=== PATIENT | male | born 1940 | race Caucasian/White ===

== ENCOUNTER 2019-11-16 15:00 | Inpatient (IN) | payer MEDICARE ==
[~2019-11-16] VITALS: Ht 193 cm; Wt 88.4 kg
[2019-11-16] MEDS ORDERED: DABI75CA3 PO (15:43)
[2019-11-16] MEDS ORDERED: PANT40TA6 PO (15:43)
[2019-11-16] MEDS ORDERED: POTA10TA12 PO (15:43)
[2019-11-16] MEDS ORDERED: LEVO75TA5 PO (15:43)
[2019-11-16] MEDS ORDERED: QUET100T PO (15:43)
[2019-11-16] MEDS ORDERED: [UNRECOGNIZED DRUG - OTHER] PO (15:43)
[2019-11-16] MEDS ORDERED: POLY17PO5 PO (15:43)
[2019-11-16] MEDS ORDERED: MIDO5TAB4 PO (15:43)
[2019-11-16] MEDS ORDERED: TEMA15CA PO (15:43)
[2019-11-16] MEDS ORDERED: [UNRECOGNIZED DRUG - OTHER] PO (15:43)
[2019-11-16] MEDS ORDERED: DONE10TA7 PO (15:43)
[2019-11-16] MEDS ORDERED: QUET50TA PO (15:43)
[2019-11-16] MEDS ORDERED: DIGO125T17 PO (15:43)
[2019-11-16] MEDS ORDERED: LORA-254 PO ×2 (15:43)
[2019-11-16] MEDS ORDERED: DOCU-109 PO (15:43)
[2019-11-16] MEDS ORDERED: IBUP200T58 PO (15:43)
[2019-11-16] MEDS ORDERED: ACET500T68 PO (15:43)
[2019-11-16] MEDS ORDERED: MAGN400O7 PO (15:43)
[2019-11-16 15:49] VITALS: BP 130/78
--- NOTE | 2019-11-16 16:04 | NUR ---
NURSING NOTE ADMIT PT ADMIT TO ROOM 131 AT 1510 FOR DX OF PUI TO BE ADMIT TO [facility]. PT WHEELED TO ROOM. PT A&O TO SELF ONLY. PT MEDS ENTERED INTO CHART. THIS NURSE DID NOT RECEIVE REPORT FROM FACILITY. PHONED FACILITY TO FIND OUT ABOUT FLU SHOT AND ACTIVITY LEVEL. PT HAS NOT RECEIVED FLU SHOT. PT USES WHEELCHAIR MOSTLY BUT WILL GET UP IF UNATTENDED AND IS A FALL RISK. PT BELONGINGS LABELED AND PT CURRENTLY IN BED RESTING. JEN NAVAS.
[2019-11-16] MEDS ORDERED: MAGNESIUM HYDROXIDE 2,400 MG/30 ML ORAL.SUSP. PO PRN ×2 (19:00→22:00)
[2019-11-16] MEDS ORDERED: MAG HYDROX/AL HYDROX/SIMETH 30 ML ORAL.SUSP PO PRN (19:15)
[2019-11-16] MEDS ORDERED: BISMUTH SUBSALICYLATE 262 MG/15 ML ORAL.SUSP 236ML BOTTLE. PO PRN (19:15)
[2019-11-16] MEDS: QUEtiapine 50 MG TABLET. PO SCH (19:50)
[2019-11-16] MEDS: IBUPROFEN 200 MG TABLET PO SCH (19:50)
[2019-11-16] MEDS: ACETAMINOPHEN 500 MG TABLET PO SCH (19:50)
[2019-11-16] MEDS: TEMAZEPAM 15 MG CAPSULE PO SCH (19:50)
[2019-11-16] MEDS: DOCUSATE SODIUM 100 MG CAPSULE PO SCH (19:51)
[2019-11-16] MEDS: LORazepam 1 MG TABLET PO SCH (19:51)
[2019-11-16] MEDS: LORazepam 1 MG TABLET PO PRN (19:52)
[2019-11-16 21:12] VITALS: BP 180/117
--- NOTE | 2019-11-16 22:07 | PDOC ---
Exam Note: Evelio Note: Please also refer to the separate dictated note~for this date of service dictated separately.~Patient seen individually. Discussed the patient with Nursing staff reviewed the chart.~Reviewed interim history and current functioning. Reviewed vital signs,~Labs/ Radiology~and current medications noted below. Continue current treatment with the changes noted in the dictated addendum note Assessment: Vital Signs/I&O: Vital Signs Date Time Temp Pulse Resp B/P (MAP) Pulse Ox O2 Delivery O2 Flow Rate FiO2 11/16/19 21:12 77 180/117 (138) 99 11/16/19 16:32 Room Air 11/16/19 15:49 97.6 20 Current Medications: Meds: Current Medications Medications (Trade) Dose Ordered Sig/Harvey Route PRN Reason Start Time Stop Time Status Last Admin Dose Admin Acetaminophen (Tylenol) 1,000 mg BID PO 11/16/19 21:00 11/16/19 19:50 Docusate Sodium (Colace) 100 mg BID PO 11/16/19 21:00 11/16/19 19:51 Ibuprofen (Motrin) 200 mg Q12HR PO 11/16/19 21:00 11/16/19 19:50 Lorazepam (Ativan) 0.5 mg PRN Q4HRS PRN PO ANXIETY / AGITATION 11/16/19 19:00 11/16/19 19:52 Quetiapine Fumarate (SEROquel) 50 mg HS PO 11/16/19 21:00 11/16/19 19:50 Temazepam (Restoril) 15 mg QHS PO 11/16/19 21:00 11/16/19 19:50 Olanzapine (ZyPREXA ZYDIS) 2.5 mg PRN Q2HR PRN PO PSYCHOSIS 11/16/19 21:00 11/16/19 21:06 I have reviewed the current psychotropics carefully including drug interactions. Risk benefit ratio favors no change other than as noted in my dictated progress note. JOSE WILSON MD Nov 16, 2019 22:06
--- NOTE | 2019-11-16 23:56 | NUR ---
Pt has been extremely disorganized and restless this shift. Pt wandering unit and unable to follow direction. 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 Staff at pt's side 1:1 all evening. Pt has extremely unsteady gait and has visual hallucinations and attempts to bend down and pick items up off of the floor. Staff attempted to walk with pt, toilet pt, turn music on caitlyn. Interventions unsuccessful. PRN Ativan administered with HS medications. Pt compliant with crushed medications in chocolate pudding. Pt continued to be restless and wander over to nurse's station. Pt had witnessed fall at approximately 0. Pt fell backwards and hit back of head on chair. VS taken. Nursing classified advertising supervisor on unit. notified. Pt became increasingly agitated and attempted to hit staff. Dr. Farooq teague. Received order for Zyprexa Zydis 2.5mg. PRN Zyprexa administered sublingually at 2100. Pt placed in bed d/t unsteadiness where he proceeded to repeatedly try to get up. Staff at bedside for safety. Pt sleeping intermittently. At approximately 2350, pt began attempting to get out of bed. PRN Zyprexa administered sublingually. Pt currently awake in bed with bed alarm on. Will continue to monitor.
[2019-11-17 02:25] LABS: BACTERIA,URINE 0 /HPF (0-FEW); BILIRUBIN,URINE NEG (NEG); CLARITY,URINE CLEAR; COLOR,URINE YELLOW; GLUCOSE,URINE NEG (NEG); NITRITE,URINE NEG (NEG); RBC,URINE 0 /HPF (0-2); SQUAMOUS EPITHELIAL CELL,UR OCC /LPF; UROBILINOGEN,URINE 0.2 mg/dL (0.2 mg/dL); WBC,URINE RARE /HPF (0-4)
[2019-11-17] MEDS: LORazepam 1 MG TABLET PO PRN (06:04)
[2019-11-17] MEDS: LEVOTHYROXINE 75 MCG TABLET PO SCH (06:04)
[2019-11-17 06:35] VITALS: BP 208/116
[2019-11-17] MEDS ORDERED: amLODIPine BESYLATE 10 MG TABLET PO SCH (07:00)
[2019-11-17 07:03] VITALS: BP 207/104
[2019-11-17] MEDS: MIDODRINE 5 MG TABLET PO SCH ×2 (07:21→11:31)
[2019-11-17] MEDS ORDERED: amLODIPine BESYLATE 10 MG TABLET PO ONE (07:45)
[2019-11-17 07:59] LABS: BASO % 0 % (0-3); EOS # 0.3 x10^3/uL (0.0-0.7); EOS % 4 % (0-3); HEMATOCRIT 43.8 % (39.0-53.0); HEMOGLOBIN 14.6 g/dL (13.0-17.5); LYMPH # 2.3 x10^3/uL (1.0-4.8); LYMPH % 30 % (24-48); MEAN CORPUSCULAR HEMOGLOBIN 32 pg (25-35); MEAN CORPUSCULAR HGB CONC 33 g/dL (31-37); MEAN CORPUSCULAR VOLUME 95 fL (79-100); MONO # 0.7 x10^3/uL (0.0-1.1); MONO % 10 % (0-9); NEUT # 4.3 x10^3uL (1.8-7.7); NEUT % 56 % (31-73); PLATELET COUNT 125 x10^3/uL (140-400); RED CELL DISTRIBUTION WIDTH 15.4 % (11.5-14.5); WHITE BLOOD COUNT 7.7 x10^3/uL (4.0-11.0)
[2019-11-17 08:26] LABS: ALBUMIN 3.8 g/dL (3.4-5.0); ALBUMIN/GLOBULIN RATIO 1.1 (1.0-1.7); CALCIUM 9.1 mg/dL (8.5-10.1); GFR 72.3; POTASSIUM 3.8 mmol/L (3.5-5.1); TOTAL BILIRUBIN 0.5 mg/dL (0.2-1.0); TOTAL PROTEIN 7.3 g/dL (6.4-8.2)
[2019-11-17 08:28] LABS: DIG 0.6 ng/dL (0.9-2.0); MAGNESIUM 2.3 mg/dL (1.8-2.4)
[2019-11-17] MEDS: ACETAMINOPHEN 500 MG TABLET PO SCH ×2 (08:39→20:01)
[2019-11-17] MEDS: DIGOXIN 125 MCG TABLET PO SCH (08:39)
[2019-11-17] MEDS: DOCUSATE SODIUM 100 MG CAPSULE PO SCH ×2 (08:39→20:01)
[2019-11-17] MEDS: DONEPEZIL HCL 10 MG TABLET PO SCH (08:39)
[2019-11-17] MEDS: POLYETHYLENE GLYCOL 3350 17 GM PACKET. PO SCH (08:39)
[2019-11-17] MEDS: POTASSIUM CHLORIDE 10 MEQ TABLET.ER. PO SCH (08:39)
[2019-11-17] MEDS: LORazepam 1 MG TABLET PO SCH (08:40)
[2019-11-17] MEDS: IBUPROFEN 200 MG TABLET PO SCH ×2 (08:40→20:04)
[2019-11-17] MEDS: PANTOPRAZOLE 40 MG TABLET. PO SCH (08:40)
[2019-11-17 08:47] LABS: BACTERIA,URINE 0 /HPF (0-FEW); BILIRUBIN,URINE NEG (NEG); CLARITY,URINE CLEAR; COLOR,URINE YELLOW; GLUCOSE,URINE NEG (NEG); NITRITE,URINE NEG (NEG); RBC,URINE 0 /HPF (0-2); SQUAMOUS EPITHELIAL CELL,UR FEW /LPF; UROBILINOGEN,URINE 0.2 mg/dL (0.2 mg/dL); WBC,URINE OCC /HPF (0-4)
[2019-11-17] MEDS ORDERED: QUEtiapine 100 MG TABLET. PO SCH (09:00)
[2019-11-17] MEDS ORDERED: DABIGATRAN ETEXILATE 75 MG CAPSULE. PO SCH (09:00)
[2019-11-17] MEDS ORDERED: FLU VACC QS 2020-21(6MOS+)/PF 0.5 ML SYRINGE. VAX IM ONE (09:00)
--- NOTE | 2019-11-17 10:22 | NUR ---
Patient calm and cooperative this morning until 0800. Patient allowed labs to be drawn. After 0800 patient began to become more irritable; attempting to slap, kick and spit on staff. Patient refused medication and attempted to hit staff while medications were being given. Patient had medication floated in pudding. public relations supervisor notified of patient possibly needing to be a 1:1 due to behavior and fall risk.Tech sitting in door way of patients room.
[2019-11-17 11:00] VITALS: BP 188/90
[2019-11-17] MEDS: QUEtiapine 100 MG TABLET. PO SCH (11:58)
[2019-11-17 13:00] VITALS: BP 144/70
--- NOTE | 2019-11-17 13:15 | CONS ---
DATE OF CONSULTATION: 11/16/2019 PSYCHIATRIC CONSULTATION This late entry date of service 11/16/2019 covers elements not covered in my initial note 11/16/2019. IDENTIFYING DATA: The patient is a 79-year-old male referred to us from [facility] by his primary care physician on account of worsening confusion, attempting to kick a GRAVE DIGGER at the facility, restless with increased agitation, visual hallucinations, seeing cars, animals and people. He has been picking up objects off the floor that are not there. He chased a GRAVE DIGGER when he thought he was being robbed. He wanders. 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 The patient's behaviors have been dangerous, unmanageable at the facility, having failed outpatient psychiatric interventions, he is referred for inpatient psychiatric stabilization. He has been admitted on the [facility] unit before going to the [facility], so that COVID negative status can be confirmed before transition. CHIEF COMPLAINT: "No." HISTORY OF PRESENT ILLNESS: The patient has a long history of dementia, Alzheimer's vascular type. He also has a past history of alcohol abuse with questionable blackouts, but will have to be confirmed as the hospitalization progresses. He has a diagnosis additionally of Lewy body dementia and has been increasingly psychotic, agitated with sleep and appetite changes, disruptive, dangerous, unmanageable behaviors noted above. PAST PSYCHIATRIC HISTORY: As above. MEDICAL HISTORY: Positive for hypertension, atrial fibrillation, pacemaker in place, hyperlipidemia, GERD, hypothyroidism, sick sinus syndrome, anemia, hemorrhoids. ACCU-CHEKS: Negative. CODE STATUS: DNR. ALLERGIES: NEOSPORIN. DIET: Regular. Takes medications crushed, ambulates in wheelchair at the facility, unsteady. UA awaited. CURRENT PSYCHOTROPICS: Ativan 1 mg daily, 0.5 mg q. 4 hours p.r.n.; Aricept 10 mg a day; Seroquel 100 mg daily, 50 mg at bedtime; temazepam 15 mg at bedtime. FAMILY HISTORY: Noncontributory. SOCIAL HISTORY: Positive for alcohol abuse noted above, but will have to be confirmed. No physical, sexual or elder abuse history is noted. He is not known to be a perpetrator. REVIEW OF SYSTEMS: Ambulation impaired. No CV, , pulmonary, eye, ENT system symptoms on review. MENTAL STATUS EXAMINATION: The patient was seen individually. He is oriented to himself. Insight, judgment, recent and remote memory, attention, concentration, fund of knowledge poor, consistent with his diagnosis. He is quite restless, anxious, grabbing at things. LABORATORY DATA: Reviewed. IMPRESSION: Major neurocognitive disorder, possibly Lewy body, Alzheimer, vascular with delusion, depression, behavioral disturbance; anxiety disorder, unspecified; impulse control disorder, unspecified; rule out urinary tract infection. Rest as above. RECOMMENDATIONS: From a psychiatric standpoint, continue his current psychotropics. We will consider tapering and stopping the Ativan since this could be causing paradoxical disinhibition. Consider changing Restoril to Remeron, adjusting the Seroquel to have some daytime mood stabilization effect and add Zyprexa p.r.n. I was called by JEN Colvin around 10:00 p.m. on account of the patient's marked agitation, disruptive behaviors and we did add Zyprexa 2.5 mg q. 2 hours p.r.n. psychosis, agitation, max 15 mg a day. May also consider Depakote as a mood stabilizer. We will transition to [facility] once COVID status negative. MAN Cristóbal WILSON MD DR: YESSY/pascale JOB#: [id number] / [id number]
[2019-11-17 13:29] LABS: THYROID STIM HORMONE (TSH) 4.864 uIU/mL (0.358-3.740)
[2019-11-17] MEDS: QUEtiapine 25 MG TABLET. PO SCH (14:46)
[2019-11-17 18:49] VITALS: BP 165/90
--- NOTE | 2019-11-17 19:08 | HP ---
ADMIT DATE: 11/16/2019 HISTORY OF PRESENT ILLNESS: The patient is a 79-year-old male patient, a resident at [facility] in cooperation who was admitted to [facility] for 48 hours hold to make sure that he is COVID-19 negative and the admission was on account of him attempting to kick a SCENERY BUILDER, being restless with increased agitation, visual hallucination. He sees cars, animals, pupils and picks up objects off the floor that are not there. 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 PAST MEDICAL HISTORY: Significant for hypertension, atrial fibrillation, hyperlipidemia, obstructive sleep apnea, gastroesophageal reflux disease, hypothyroidism, sick sinus syndrome, anemia, anxiety, insomnia, and hemorrhoids. PAST SURGICAL HISTORY: Significant for permanent pacemaker placement. ALLERGIES: HE IS ALLERGIC TO NEOSPORIN. MEDICATIONS: He is currently on following medications: He is on lorazepam 0.5 mg once a day, quetiapine fumarate 25 mg at 1500 hours, Seroquel 50 mg twice a day, potassium chloride 10 mEq once a day, polyethylene glycol 17 grams daily, Protonix 40 mg daily, Aricept 10 mg once a day, digoxin 125 mcg once a day, Pradaxa 75 mg daily, midodrine 5 mg 3 times a day with meals, levothyroxine 75 mcg daily, milk of magnesia 30 mL p.o. daily p.r.n. for constipation, olanzapine 2.5 mg every 2 hours, temazepam 50 mg at bedtime, Seroquel 50 mg at bedtime, ibuprofen 200 mg q.12 hourly, Colace 100 mg twice a day, acetaminophen 1000 mg twice a day, Bismuth subsalicylate 524 mg 3 times a day for diarrhea, Mylanta 30 mL every 6 hours as needed, and lorazepam 0.5 mg every 4 hours as needed. FAMILY HISTORY: Unobtainable. SOCIAL HISTORY: He is apparently a resident at [facility]. No further information available. PHYSICAL EXAMINATION: GENERAL: When I examined him, he was resting slightly propped up in bed, in no apparent distress. There was no pallor, jaundice, cyanosis or thyromegaly. No jugular venous distention. No limb edema. VITAL SIGNS: Her heart rate was 67, blood pressure was extremely high this morning at 207/104. It came down to 144/70 after he received amlodipine. His temperature was 97.3 and his oxygen saturation was 98% on room air. HEAD, EYES, EARS, NOSE AND THROAT: Showed normocephalic, atraumatic. NECK: Supple. CARDIAC: Normal first and second heart sounds. No gallop, rub or murmur. CHEST: Clear to auscultation. No crepitation or rhonchi. ABDOMEN: Slightly distended, soft, nontender. NEUROLOGIC: He is demented, but without any obvious lateralizing sign. All his cranial nerves are intact. He moves extremities without difficulty. Apparently, he is able to stand up, but he has recurrent falls. LABORATORY DATA: Her lab work on admission showed a white cell count of 7700, hemoglobin 14.6, hematocrit 44, MCV 95, and platelet count of 155,000. His D-dimer was 0.21. His chemistry showed a serum sodium 141, potassium 3.8, chloride 107, bicarbonate was 27, anion gap of 7, BUN 19, creatinine 1, estimated GFR was 72 mL per minute, his glucose was 91, calcium was 9.1, magnesium was 2.3. Serum iron, TIBC and iron saturation are all high. Total bilirubin, AST, ALT, alkaline phosphatase were normal. Total protein 7.3, albumin was 3.8. His serum triglycerides were 150, total cholesterol 160, LDL was 87, VLDL was 30, HDL was 43 and the ratio was 3. His TSH was slightly high at 4.864. His urinalysis is essentially unremarkable and his toxic screen showed digoxin. Serum digoxin level was 0.6, which is subtherapeutic. ASSESSMENT AND PLAN: In summary, this is a 79-year-old male patient who was admitted on account of attempting to kick a SCENERY BUILDER. He was restless with increased agitation, has visual hallucination. He sees cars, animals and people. He picks up objects off floor that are not there. 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 Medically, the patient is known to have hypertension, atrial fibrillation, hyperlipidemia, has also sick sinus syndrome, for which he had permanent pacemaker placed. He has also hypothyroidism, gastroesophageal reflux disease. His past surgical history is significant for permanent pacemaker placement. Medically, the patient seems to be generally stable. His vitamin D is still pending at the time of this dictation. He is on midodrine, which indicates that he probably has some form of autonomic neuropathy, which makes him probably high risk for fall. I wonder whether it is a good idea to continue with his Pradaxa and we might have to discuss with the family the need to discontinue this altogether given he is a very high risk for fall. He has also seemed to have probably supine hypertension that is aggravated by midodrine and postural __ with tendency to fall. Thank you, Dr. Trivedi for allowing me to participate in the care of this patient. VICKY AMAYA MD DR: JASMINA/pascale JOB#: [id number] / [id number]
--- NOTE | 2019-11-17 19:09 | EKG ---
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
[2019-11-17] MEDS: QUEtiapine 50 MG TABLET. PO SCH (20:01)
[2019-11-17] MEDS: DABIGATRAN ETEXILATE 75 MG CAPSULE. PO SCH (20:02)
[2019-11-17] MEDS: TEMAZEPAM 15 MG CAPSULE PO SCH (20:04)
--- NOTE | 2019-11-17 21:53 | NUR ---
Pt laying in bed all evening, restless at times but improved from last night. Compliant with crushed medications. Pt has moist, unproductive cough this evening. HOB elevated and bed alarm on. Will continue to monitor.
--- NOTE | 2019-11-17 22:13 | PDOC ---
Exam Note: Evelio Note: Please also refer to the separate dictated note~for this date of service dictated separately.~Patient seen individually. Discussed the patient with Nursing staff reviewed the chart.~Reviewed interim history and current functioning. Reviewed vital signs,~Labs/ Radiology~and current medications noted below. Continue current treatment with the changes noted in the dictated addendum note Assessment: Vital Signs/I&O: Vital Signs Date Time Temp Pulse Resp B/P (MAP) Pulse Ox O2 Delivery O2 Flow Rate FiO2 11/17/19 20:00 Room Air 11/17/19 18:49 98.0 96 16 165/90 (115) 96 I & O 11/16/19 11/16/19 11/17/19 15:00 23:00 07:00 Intake Total 50 ml 0 ml Balance 50 ml 0 ml Labs: Laboratory Tests Test 11/17/19 01:55 11/17/19 07:28 11/17/19 07:35 Urine Collection Type Unknown Unknown Urine Color Yellow Yellow Urine Clarity Clear Clear Urine pH 6.0 7.0 Urine Specific [place] 1.020 1.025 Urine Protein Neg (NEG-TRACE) Neg (NEG-TRACE) Urine Glucose (UA) Neg mg/dL (NEG) Neg mg/dL (NEG) Urine Ketones (Stick) Trace mg/dL (NEG) Neg mg/dL (NEG) Urine Blood Neg (NEG) Neg (NEG) Urine Nitrite Neg (NEG) Neg (NEG) Urine Bilirubin Neg (NEG) Neg (NEG) Urine Urobilinogen Dipstick 0.2 mg/dL (0.2 mg/dL) 0.2 mg/dL (0.2 mg/dL) Urine Leukocyte Esterase Neg (NEG) Neg (NEG) Urine RBC 0 /HPF (0-2) 0 /HPF (0-2) Urine WBC Rare /HPF (0-4) Occ /HPF (0-4) Urine Squamous Epithelial Cells Occ /LPF Few /LPF Urine Bacteria 0 /HPF (0-FEW) 0 /HPF (0-FEW) White Blood Count 7.7 x10^3/uL (4.0-11.0) Red Blood Count 4.60 x10^6/uL (4.30-5.70) Hemoglobin 14.6 g/dL (13.0-17.5) Hematocrit 43.8 % (39.0-53.0) Mean Corpuscular Volume 95 fL (79-100) Mean Corpuscular Hemoglobin 32 pg (25-35) Mean Corpuscular Hemoglobin Concent 33 g/dL (31-37) Red Cell Distribution Width 15.4 % (11.5-14.5) H Platelet Count 125 x10^3/uL (140-400) L Neutrophils (%) (Auto) 56 % (31-73) Lymphocytes (%) (Auto) 30 % (24-48) Monocytes (%) (Auto) 10 % (0-9) H Eosinophils (%) (Auto) 4 % (0-3) H Basophils (%) (Auto) 0 % (0-3) Neutrophils # (Auto) 4.3 x10^3uL (1.8-7.7) Lymphocytes # (Auto) 2.3 x10^3/uL (1.0-4.8) Monocytes # (Auto) 0.7 x10^3/uL (0.0-1.1) Eosinophils # (Auto) 0.3 x10^3/uL (0.0-0.7) Basophils # (Auto) 0.0 x10^3/uL (0.0-0.2) D-Dimer (Hallie) 0.21 mg/L (0.00-0.50) Sodium Level 141 mmol/L (136-145) Potassium Level 3.8 mmol/L (3.5-5.1) Chloride Level 107 mmol/L (98-107) Carbon Dioxide Level 27 mmol/L (21-32) Anion Gap 7 (6-14) Blood Urea Nitrogen 19 mg/dL (8-26) Creatinine 1.0 mg/dL (0.7-1.3) Estimated GFR (Cockcroft-Gault) 72.3 BUN/Creatinine Ratio 19 (6-20) Glucose Level 91 mg/dL (70-99) Calcium Level 9.1 mg/dL (8.5-10.1) Magnesium Level 2.3 mg/dL (1.8-2.4) Iron Level 130 ug/dL (65-175) Total Iron Binding Capacity 246 ug/dL (250-450) L Iron Saturation 53 % (15-34) H Total Bilirubin 0.5 mg/dL (0.2-1.0) Aspartate Amino Transferase (AST) 12 U/L (15-37) L Alanine Aminotransferase (ALT) 14 U/L (16-63) L Alkaline Phosphatase 58 U/L (46-116) Total Protein 7.3 g/dL (6.4-8.2) Albumin 3.8 g/dL (3.4-5.0) Albumin/Globulin Ratio 1.1 (1.0-1.7) Triglycerides Level 150 mg/dL (0-150) Cholesterol Level 160 mg/dL (0-200) LDL Cholesterol, Calculated 87 mg/dL (0-100) VLDL Cholesterol, Calculated 30 mg/dL (0-40) Non-HDL Cholesterol Calculated 117 mg/dL (0-129) HDL Cholesterol 43 mg/dL (40-60) Cholesterol/HDL Ratio 3.0 Thyroid Stimulating Hormone (TSH) 4.864 uIU/mL (0.358-3.740) Digoxin Level 0.6 ng/dL (0.9-2.0) L Digoxin Last Dose Date 11/16/19 Digoxin Last Dose Time 0900 Current Medications: Meds: Current Medications Medications (Trade) Dose Ordered Sig/Harvey Route PRN Reason Start Time Stop Time Status Last Admin Dose Admin Dabigatran (Pradaxa) 75 mg DAILY PO 11/17/19 09:00 11/17/19 18:19 DC 11/17/19 08:39 Digoxin (Lanoxin) 125 mcg DAILY PO 11/17/19 09:00 11/17/19 08:39 Donepezil HCl (Aricept) 10 mg DAILY PO 11/17/19 09:00 11/17/19 08:39 Levothyroxine Sodium (Synthroid) 75 mcg DAILY06 PO 11/17/19 06:00 11/17/19 06:04 Lorazepam (Ativan) 1 mg DAILY PO 11/17/19 09:00 11/17/19 11:17 DC 11/17/19 08:40 Pantoprazole Sodium (Protonix) 40 mg DAILY PO 11/17/19 09:00 11/17/19 08:40 Polyethylene Glycol (miraLAX) 17 gm DAILY PO 11/17/19 09:00 11/17/19 08:39 Potassium Chloride (Klor-Con) 10 meq DAILY PO 11/17/19 09:00 11/17/19 08:39 Quetiapine Fumarate (SEROquel) 100 mg DAILY PO 11/17/19 09:00 11/17/19 11:17 DC 11/17/19 08:40 Amlodipine Besylate (Norvasc) 10 mg 1X ONCE PO 11/17/19 07:45 11/17/19 07:46 DC 11/17/19 07:40 Quetiapine Fumarate (SEROquel) 50 mg BIDACBL PO 11/17/19 11:30 11/17/19 11:58 Quetiapine Fumarate (SEROquel) 25 mg 1500 PO 11/17/19 15:00 11/17/19 14:46 Dabigatran (Pradaxa) 75 mg BID PO 11/17/19 21:00 11/17/19 20:02 I have reviewed the current psychotropics carefully including drug interactions. Risk benefit ratio favors no change other than as noted in my dictated progress note. Diagnosis: Problems: (1) Major neurocognitive disorder (2) Dementia, Lewy body with behavior disturbance (3) Dementia in Alzheimer's disease with delusions (4) Dementia in Alzheimer's disease with depression (5) Dementia, vascular, with delusions (6) Dementia, vascular, with depression (7) Anxiety disorder, unspecified (8) Impulse control disorder, unspecified JOSE WILSON MD Nov 17, 2019 22:13
--- NOTE | 2019-11-17 23:29 | PDOC ---
Exam Note: Evelio Note: This note for 11/17/2019 covers elements not covered in my initial note. Subjective: The patient was reviewed on telehealth rounds in the morning of 11/17/2019 with Sanchez LI. Discussed with nursing staff, reviewed the chart. I had been called as an emergency earlier in the day as well on account of the patients marked agitation, hallucinations, trying to walk out of bed, sitting on the edge of the bed, significant fall risk. Zyprexa had been ineffective. He has been actively hallucinating. Review of Systems: Ambulation impaired. No CV, , pulmonary, eye, ENT system symptoms on review. Reliability poor. Mental Status Exam: Oriented to himself. Insight and judgment, recent and remote memory, attention and concentration, fund of knowledge is poor consistent with his diagnoses. Laboratory Data: Reviewed. 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 Anxiety disorder unspecified. Impulse control disorder unspecified. Plan: From a psychiatric standpoint I would suggest tapering and stopping the Ativan which is currently 1 mg daily, changing the morning Seroquel 100 mg daily to 50 mg in the morning, 50 mg at noon with the first dosage now and then 25 mg at 3 p.m. Continue Seroquel 50 mg h.s. Consider changing Restoril to Remeron, Zyprexa will be continued p.r.n. Assessment: Vital Signs/I&O: Vital Signs Date Time Temp Pulse Resp B/P (MAP) Pulse Ox O2 Delivery O2 Flow Rate FiO2 11/17/19 20:00 Room Air 11/17/19 18:49 98.0 96 16 165/90 (115) 96 I & O 11/16/19 11/16/19 11/17/19 15:00 23:00 07:00 Intake Total 50 ml 0 ml Balance 50 ml 0 ml Labs: Laboratory Tests Test 11/17/19 01:55 11/17/19 07:28 11/17/19 07:35 Urine Collection Type Unknown Unknown Urine Color Yellow Yellow Urine Clarity Clear Clear Urine pH 6.0 7.0 Urine Specific Coello 1.020 1.025 Urine Protein Neg (NEG-TRACE) Neg (NEG-TRACE) Urine Glucose (UA) Neg mg/dL (NEG) Neg mg/dL (NEG) Urine Ketones (Stick) Trace mg/dL (NEG) Neg mg/dL (NEG) Urine Blood Neg (NEG) Neg (NEG) Urine Nitrite Neg (NEG) Neg (NEG) Urine Bilirubin Neg (NEG) Neg (NEG) Urine Urobilinogen Dipstick 0.2 mg/dL (0.2 mg/dL) 0.2 mg/dL (0.2 mg/dL) Urine Leukocyte Esterase Neg (NEG) Neg (NEG) Urine RBC 0 /HPF (0-2) 0 /HPF (0-2) Urine WBC Rare /HPF (0-4) Occ /HPF (0-4) Urine Squamous Epithelial Cells Occ /LPF Few /LPF Urine Bacteria 0 /HPF (0-FEW) 0 /HPF (0-FEW) White Blood Count 7.7 x10^3/uL (4.0-11.0) Red Blood Count 4.60 x10^6/uL (4.30-5.70) Hemoglobin 14.6 g/dL (13.0-17.5) Hematocrit 43.8 % (39.0-53.0) Mean Corpuscular Volume 95 fL (79-100) Mean Corpuscular Hemoglobin 32 pg (25-35) Mean Corpuscular Hemoglobin Concent 33 g/dL (31-37) Red Cell Distribution Width 15.4 % (11.5-14.5) H Platelet Count 125 x10^3/uL (140-400) L Neutrophils (%) (Auto) 56 % (31-73) Lymphocytes (%) (Auto) 30 % (24-48) Monocytes (%) (Auto) 10 % (0-9) H Eosinophils (%) (Auto) 4 % (0-3) H Basophils (%) (Auto) 0 % (0-3) Neutrophils # (Auto) 4.3 x10^3uL (1.8-7.7) Lymphocytes # (Auto) 2.3 x10^3/uL (1.0-4.8) Monocytes # (Auto) 0.7 x10^3/uL (0.0-1.1) Eosinophils # (Auto) 0.3 x10^3/uL (0.0-0.7) Basophils # (Auto) 0.0 x10^3/uL (0.0-0.2) D-Dimer (Hallie) 0.21 mg/L (0.00-0.50) Sodium Level 141 mmol/L (136-145) Potassium Level 3.8 mmol/L (3.5-5.1) Chloride Level 107 mmol/L (98-107) Carbon Dioxide Level 27 mmol/L (21-32) Anion Gap 7 (6-14) Blood Urea Nitrogen 19 mg/dL (8-26) Creatinine 1.0 mg/dL (0.7-1.3) Estimated GFR (Cockcroft-Gault) 72.3 BUN/Creatinine Ratio 19 (6-20) Glucose Level 91 mg/dL (70-99) Calcium Level 9.1 mg/dL (8.5-10.1) Magnesium Level 2.3 mg/dL (1.8-2.4) Iron Level 130 ug/dL (65-175) Total Iron Binding Capacity 246 ug/dL (250-450) L Iron Saturation 53 % (15-34) H Total Bilirubin 0.5 mg/dL (0.2-1.0) Aspartate Amino Transferase (AST) 12 U/L (15-37) L Alanine Aminotransferase (ALT) 14 U/L (16-63) L Alkaline Phosphatase 58 U/L (46-116) Total Protein 7.3 g/dL (6.4-8.2) Albumin 3.8 g/dL (3.4-5.0) Albumin/Globulin Ratio 1.1 (1.0-1.7) Triglycerides Level 150 mg/dL (0-150) Cholesterol Level 160 mg/dL (0-200) LDL Cholesterol, Calculated 87 mg/dL (0-100) VLDL Cholesterol, Calculated 30 mg/dL (0-40) Non-HDL Cholesterol Calculated 117 mg/dL (0-129) HDL Cholesterol 43 mg/dL (40-60) Cholesterol/HDL Ratio 3.0 Thyroid Stimulating Hormone (TSH) 4.864 uIU/mL (0.358-3.740) Digoxin Level 0.6 ng/dL (0.9-2.0) L Digoxin Last Dose Date 11/16/19 Digoxin Last Dose Time 0900 Current Medications: Meds: Current Medications Medications (Trade) Dose Ordered Sig/Harvey Route PRN Reason Start Time Stop Time Status Last Admin Dose Admin Dabigatran (Pradaxa) 75 mg DAILY PO 11/17/19 09:00 11/17/19 18:19 DC 11/17/19 08:39 Digoxin (Lanoxin) 125 mcg DAILY PO 11/17/19 09:00 11/17/19 08:39 Donepezil HCl (Aricept) 10 mg DAILY PO 11/17/19 09:00 11/17/19 08:39 Levothyroxine Sodium (Synthroid) 75 mcg DAILY06 PO 11/17/19 06:00 11/17/19 06:04 Lorazepam (Ativan) 1 mg DAILY PO 11/17/19 09:00 11/17/19 11:17 DC 11/17/19 08:40 Pantoprazole Sodium (Protonix) 40 mg DAILY PO 11/17/19 09:00 11/17/19 08:40 Polyethylene Glycol (miraLAX) 17 gm DAILY PO 11/17/19 09:00 11/17/19 08:39 Potassium Chloride (Klor-Con) 10 meq DAILY PO 11/17/19 09:00 11/17/19 08:39 Quetiapine Fumarate (SEROquel) 100 mg DAILY PO 11/17/19 09:00 11/17/19 11:17 DC 11/17/19 08:40 Amlodipine Besylate (Norvasc) 10 mg 1X ONCE PO 11/17/19 07:45 11/17/19 07:46 DC 11/17/19 07:40 Quetiapine Fumarate (SEROquel) 50 mg BIDACBL PO 11/17/19 11:30 11/17/19 11:58 Quetiapine Fumarate (SEROquel) 25 mg 1500 PO 11/17/19 15:00 11/17/19 14:46 Dabigatran (Pradaxa) 75 mg BID PO 11/17/19 21:00 11/17/19 20:02 I have reviewed the current psychotropics carefully including drug interactions. Risk benefit ratio favors no change other than as noted in my dictated progress note. Diagnosis: Problems: (1) Impulse control disorder, unspecified (2) Anxiety disorder, unspecified (3) Dementia, vascular, with depression (4) Dementia, vascular, with delusions (5) Dementia, Lewy body with behavior disturbance (6) Dementia in Alzheimer's disease with depression (7) Dementia in Alzheimer's disease with delusions (8) Major neurocognitive disorder JOSE WILSON MD Nov 17, 2019 23:29
[2019-11-18 01:08] LABS: THYROXINE 4.7 ug/dL (4.5-12.0)
[2019-11-18 02:06] LABS: HEMOGLOBIN A1C 5.4 % (4.8-5.6)
[2019-11-18] MEDS: LEVOTHYROXINE 75 MCG TABLET PO SCH (05:50)
--- NOTE | 2019-11-18 05:55 | NUR ---
Pt awake and restless the majority of the night. Pt appears to be having visual and auditory hallucinations AEB picking at things in the air and talking to people that are not there. No PRNs needed this shift.
[2019-11-18 06:25] VITALS: BP 178/81
[2019-11-18] MEDS: MIDODRINE 5 MG TABLET PO SCH ×3 (07:00→16:48)
[2019-11-18] MEDS: QUEtiapine 100 MG TABLET. PO SCH ×2 (08:13→12:00)
[2019-11-18] MEDS: PANTOPRAZOLE 40 MG TABLET. PO SCH (08:13)
[2019-11-18] MEDS: DABIGATRAN ETEXILATE 75 MG CAPSULE. PO SCH ×2 (08:13→20:05)
[2019-11-18] MEDS: POLYETHYLENE GLYCOL 3350 17 GM PACKET. PO SCH (08:13)
[2019-11-18] MEDS: ACETAMINOPHEN 500 MG TABLET PO SCH ×2 (08:13→20:05)
[2019-11-18] MEDS: DIGOXIN 125 MCG TABLET PO SCH (08:14)
[2019-11-18] MEDS: DOCUSATE SODIUM 100 MG CAPSULE PO SCH ×2 (08:14→20:04)
[2019-11-18] MEDS: IBUPROFEN 200 MG TABLET PO SCH (08:14)
[2019-11-18] MEDS: LORazepam 1 MG TABLET PO SCH (08:14)
[2019-11-18] MEDS: DONEPEZIL HCL 10 MG TABLET PO SCH (08:14)
[2019-11-18] MEDS: POTASSIUM CHLORIDE 10 MEQ TABLET.ER. PO SCH (08:14)
--- NOTE | 2019-11-18 08:54 | NUR ---
Patient calmer today and more complaint with medication and assessment. Patient appears to be talking to himself and visual hallucinating. Patient has no needs at this time.
[2019-11-18] MEDS: QUEtiapine 25 MG TABLET. PO SCH (14:13)
[2019-11-18 16:11] VITALS: BP 82/55
[2019-11-18 16:13] VITALS: BP 91/58
[2019-11-18] MEDS: TEMAZEPAM 15 MG CAPSULE PO SCH (20:04)
[2019-11-18] MEDS: QUEtiapine 50 MG TABLET. PO SCH (20:05)
--- NOTE | 2019-11-18 22:08 | PDOC ---
Exam Note: Evelio Note: Please also refer to the separate dictated note~for this date of service dictated separately.~Patient seen individually. Discussed the patient with Nursing staff reviewed the chart.~Reviewed interim history and current functioning. Reviewed vital signs,~Labs/ Radiology~and current medications noted below. Continue current treatment with the changes noted in the dictated addendum note Assessment: Vital Signs/I&O: Vital Signs Date Time Temp Pulse Resp B/P (MAP) Pulse Ox O2 Delivery O2 Flow Rate FiO2 11/18/19 20:00 Room Air 11/18/19 16:48 65 91/58 11/18/19 16:13 95 11/18/19 06:25 97.5 20 I & O 11/17/19 11/17/19 11/18/19 15:00 23:00 07:00 Intake Total 240 ml 50 ml 0 ml Balance 240 ml 50 ml 0 ml Current Medications: Meds: Current Medications Medications (Trade) Dose Ordered Sig/Harvey Route PRN Reason Start Time Stop Time Status Last Admin Dose Admin Lorazepam (Ativan) 0.5 mg DAILY PO 11/18/19 09:00 11/20/19 09:00 11/18/19 08:14 I have reviewed the current psychotropics carefully including drug interactions. Risk benefit ratio favors no change other than as noted in my dictated progress note. Diagnosis: Problems: (1) Impulse control disorder, unspecified (2) Anxiety disorder, unspecified (3) Dementia, vascular, with depression (4) Dementia, vascular, with delusions (5) Dementia, Lewy body with behavior disturbance (6) Dementia in Alzheimer's disease with depression (7) Dementia in Alzheimer's disease with delusions (8) Major neurocognitive disorder JOSE WILSON MD Nov 18, 2019 22:08
--- NOTE | 2019-11-18 22:27 | NUR ---
Pt sitting in his bed with his legs dangling over the foot of the bed at shift change. Pt visually hallucinating; grabbing at things in the air. Pt also talking to himself. Compliant with crushed medications. Pt resistive during ADL care but not combative.
--- NOTE | 2019-11-18 22:55 | PN ---
DATE: 11/18/2019 SUBJECTIVE: The patient is resting, slightly propped up in bed, in no apparent distress. He is extremely unsteady on his feet and he has marked postural hypotension. His heart rate does not really change with repositioning indicating that he does have autonomic neuropathy. He is on Pradaxa and I think he is a very high risk for fall and bleeding. OBJECTIVE: GENERAL: When I examined him this afternoon, he looked well and was clearly in no apparent respiratory distress. No pallor, jaundice, cyanosis, or thyromegaly. No jugular venous distention. No lower limb edema. VITAL SIGNS: His heart rate was 66, blood pressure was 82/53 both sitting and lying. The patient was unable to stand for any length of time. HEENT: Showed normocephalic, atraumatic. NECK: Supple. HEART: Normal first and second heart sounds. No gallop or murmur. CHEST: Clear to auscultation. No crepitation or rhonchi. ABDOMEN: Distended, soft, nontender. NEUROLOGIC: He was demented without any obvious lateralizing sign. His intake over the last 24 hours was incompletely recorded. LABORATORY DATA: His lab work showed that his hemoglobin 14, hematocrit 43 with normal white cell count and platelets. His chemistry showed his BUN is 19, creatinine 1. His coronavirus by PCR was not detected. ASSESSMENT: This is a 79-year-old male patient who was admitted on account of attempting to ____. He was restless with increased agitation, has visual hallucination. He sees cars and animals and people and attempt to get objects off the floor that are not there. Medically, he has multiple medical problems including: A. Hypertension. B. Atrial fibrillation. C. Hyperlipidemia. He also has sick sinus syndrome, for which has permanent pacemaker placed. He also has hypothyroidism, gastroesophageal reflux disease. He is extremely unsteady on his feet and has postural hypotension. He is on midodrine 3 times a day. PLAN: My plan is to discontinue the ibuprofen. We will put parameters for midodrine as his blood pressure is more than 120 in the morning, I will hold midodrine. I will discontinue the ibuprofen as he is a high risk for bleeding and we need to talk to his family as he is going to be a very high risk for fall and intracranial bleeding. VICKY AMAYA MD DR: Jayjay JOB#: [id number] / [id number]
[2019-11-19] MEDS: LEVOTHYROXINE 75 MCG TABLET PO SCH (05:39)
[2019-11-19 06:20] VITALS: BP 160/92
[2019-11-19] MEDS: ACETAMINOPHEN 500 MG TABLET PO SCH (07:59)
[2019-11-19] MEDS: MIDODRINE 5 MG TABLET PO SCH ×2 (08:00→12:12)
[2019-11-19] MEDS: DONEPEZIL HCL 10 MG TABLET PO SCH (08:00)
[2019-11-19] MEDS: DIGOXIN 125 MCG TABLET PO SCH (08:00)
[2019-11-19] MEDS: QUEtiapine 100 MG TABLET. PO SCH ×2 (08:01→12:12)
[2019-11-19] MEDS: DOCUSATE SODIUM 100 MG CAPSULE PO SCH (08:01)
[2019-11-19] MEDS: POTASSIUM CHLORIDE 10 MEQ TABLET.ER. PO SCH (08:01)
[2019-11-19] MEDS: POLYETHYLENE GLYCOL 3350 17 GM PACKET. PO SCH (08:02)
[2019-11-19] MEDS: PANTOPRAZOLE 40 MG TABLET. PO SCH (08:02)
[2019-11-19] MEDS: DABIGATRAN ETEXILATE 75 MG CAPSULE. PO SCH (08:05)
[2019-11-19] MEDS: LORazepam 1 MG TABLET PO SCH (08:12)
[2019-11-19 12:12] VITALS: BP 166/84
--- NOTE | 2019-11-19 14:30 | NUR ---
Patient discharged to [facility].
[2019-11-19] MEDS ORDERED: OLAN5TAB99 PO (19:24)
[2019-11-19] MEDS ORDERED: LORA-434 PO (19:24)
[2019-11-19] MEDS ORDERED: QUET50TA5 PO (19:24)
[2019-11-19] MEDS ORDERED: QUET25TA5 PO (19:24)
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
--- NOTE | 2019-11-20 06:38 | PDOC ---
Exam Note: Evelio Note: This note is a late entry for 11/18/2019 covers elements not covered in my initial note. Subjective: The patient was reviewed on telehealth rounds of 11/18/2019 with Sanchez LI. Discussed with nursing staff, reviewed the chart. The patient has had intermittent auditory and visual hallucinations. He has been talking to himself, confused. Symptoms consistent with his Lewy body dementia. Review of Systems: Ambulation impaired in wheelchair. No CV, , pulmonary, eye, ENT system symptoms on review. Reliability poor. Mental Status Exam: Oriented to himself. Insight and judgment, recent and remote memory, attention and concentration, fund of knowledge is poor consistent with his diagnoses. Laboratory Data: Reviewed. Impression: Major neurocognitive disorder Lewy body with delusion and depression, behavioral disturbance. Anxiety disorder unspecified. Impulse control disorder unspecified. Plan: The patients Ativan 1 mg daily could be disinhibiting him. We will reduce it to 0.5 mg a day for 3 days and then stop it. Continue Aricept, Seroquel, and temazepam for now and consider changing temazepam to Remeron later. Assessment: Vital Signs/I&O: Vital Signs Date Time Temp Pulse Resp B/P (MAP) Pulse Ox O2 Delivery O2 Flow Rate FiO2 11/19/19 12:12 70 166/84 11/19/19 08:15 Room Air 11/19/19 06:20 97.9 20 97 I & O 11/19/19 11/19/19 11/20/19 15:00 23:00 07:00 Intake Total 960 ml Balance 960 ml Current Medications: I have reviewed the current psychotropics carefully including drug interactions. Risk benefit ratio favors no change other than as noted in my dictated progress note. Diagnosis: Problems: (1) Visual hallucination (2) Impulse control disorder, unspecified (3) Anxiety disorder, unspecified (4) Dementia, vascular, with depression (5) Dementia, vascular, with delusions (6) Dementia, Lewy body with behavior disturbance (7) Dementia in Alzheimer's disease with depression (8) Dementia in Alzheimer's disease with delusions (9) Major neurocognitive disorder JOSE WILSON MD Nov 20, 2019 06:38
== END 2019-11-19 14:33 | DRG 74 ==
LOC: LND 15:00
PROVIDERS: ADMIT Internal Medicine; ATTEND Internal Medicine
DX: G90.9 Disorder of the autonomic nervous system, unspecified (principal); F01.51 Vascular dementia, unspecified severity, with behavioral disturbance; F02.81 Dementia in other diseases classified elsewhere, unspecified severity, with behavioral disturbance; R45.1 Restlessness and agitation; E03.9 Hypothyroidism, unspecified; E78.5 Hyperlipidemia, unspecified; F10.10 Alcohol abuse, uncomplicated; F32.9 Major depressive disorder, single episode, unspecified; F41.9 Anxiety disorder, unspecified; F63.9 Impulse disorder, unspecified; G30.9 Alzheimer's disease, unspecified; G31.83 Neurocognitive disorder with Lewy bodies; I10 Essential (primary) hypertension; I48.91 Unspecified atrial fibrillation; I49.5 Sick sinus syndrome; I95.1 Orthostatic hypotension; K21.9 Gastro-esophageal reflux disease without esophagitis; Z20.828 Contact with and (suspected) exposure to other viral communicable diseases; Z66 Do not resuscitate; Z79.01 Long term (current) use of anticoagulants; Z95.0 Presence of cardiac pacemaker; G47.33 Obstructive sleep apnea (adult) (pediatric); Z88.8 Allergy status to other drugs, medicaments and biological substances
CPT/HCPCS: 36415; 80053; 80061; 80162; 81001; 82306; 82607; 83036; 83540; 83550; 83735; 84436; 84443; 84480; 85025; 85379; 86592; 93005; U0003

== ENCOUNTER 2019-11-19 14:35 | Inpatient (IN) | payer MEDICARE ==
[~2019-11-19] VITALS: Ht 193 cm; Wt 88.4 kg
[~2019-11-19 14:35] MED LIST: ACET500T68 PO; DABI75CA3 PO; DIGO125T17 PO; DOCU-109 PO; DONE10TA7 PO; IBUP200T58 PO; LEVO75TA5 PO; LORA-254 PO; MAGN400O7 PO; MIDO5TAB4 PO; PANT40TA6 PO; POLY17PO5 PO; POTA10TA12 PO; QUET100T PO; QUET50TA PO; TEMA15CA PO; [UNRECOGNIZED DRUG - OTHER] PO; [UNRECOGNIZED DRUG - OTHER] PO
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
[2019-11-19 16:01] VITALS: BP 99/63
[2019-11-19] MEDS ORDERED: ACETAMINOPHEN 325 MG TABLET PO PRN (18:30)
[2019-11-19] MEDS ORDERED: MAGNESIUM HYDROXIDE 2,400 MG/30 ML ORAL.SUSP. PO PRN ×2 (18:30→19:30)
[2019-11-19] MEDS ORDERED: MAG HYDROX/AL HYDROX/SIMETH 30 ML ORAL.SUSP PO PRN ×2 (18:30→20:15)
[2019-11-19] MEDS ORDERED: METHYL SALICYLATE/MENTHOL TOPICAL OINTMENT 57GM TUBE. TP PRN (18:30)
[2019-11-19] MEDS ORDERED: OLAN5TAB99 PO (19:24)
[2019-11-19] MEDS ORDERED: LORA-434 PO (19:24)
[2019-11-19] MEDS ORDERED: QUET25TA5 PO (19:24)
[2019-11-19] MEDS ORDERED: QUET50TA5 PO (19:24)
[2019-11-19] MEDS ORDERED: BISMUTH SUBSALICYLATE 262 MG/15 ML ORAL.SUSP 236ML BOTTLE. PO PRN (20:15)
[2019-11-19] MEDS: MIRTAZAPINE 7.5 MG TABLET. PO SCH (20:39)
[2019-11-19] MEDS: ACETAMINOPHEN 500 MG TABLET PO SCH (20:39)
[2019-11-19] MEDS: DOCUSATE SODIUM 100 MG CAPSULE PO SCH (20:40)
[2019-11-19] MEDS: QUEtiapine 50 MG TABLET. PO SCH (20:40)
[2019-11-19] MEDS: DABIGATRAN ETEXILATE 75 MG CAPSULE. PO SCH (20:40)
--- NOTE | 2019-11-19 21:37 | NUR ---
Nursing Note: Location of Patient during Assessment: Pt sitting up in w/c in his room at shift change. Behaviors Mood and Affect this shift: Pt continues to have AH/VH AEB talking to himself and picking at things in the air, but has been calm and cooperative, no agitation or aggression noted thus far this shift. Medication Compliant: Compliant with medications administered crushed in pudding. Assessment Compliant: Cooperative and compliant with assessment, no s/sx of pain noted at this time. Response After Interventions: Pt resting quietly in bed at this time.
--- NOTE | 2019-11-19 22:02 | PDOC ---
Exam Note: Evelio Note: Please also refer to the separate dictated note~for this date of service dictated separately.~Patient seen individually. Discussed the patient with Nursing staff reviewed the chart.~Reviewed interim history and current functioning. Reviewed vital signs,~Labs/ Radiology~and current medications noted below. Continue current treatment with the changes noted in the dictated addendum note Assessment: Vital Signs/I&O: Vital Signs Date Time Temp Pulse Resp B/P (MAP) Pulse Ox O2 Delivery O2 Flow Rate FiO2 11/19/19 16:01 97.5 65 16 99/63 (75) 96 Current Medications: Meds: Current Medications Medications (Trade) Dose Ordered Sig/Harvey Route PRN Reason Start Time Stop Time Status Last Admin Dose Admin Quetiapine Fumarate (SEROquel) 50 mg HS PO 11/19/19 21:00 11/19/19 20:40 Acetaminophen (Tylenol) 1,000 mg BID PO 11/19/19 21:00 11/19/19 20:39 Dabigatran (Pradaxa) 75 mg BID PO 11/19/19 21:00 11/19/19 20:40 Docusate Sodium (Colace) 100 mg BID PO 11/19/19 21:00 11/19/19 20:40 Mirtazapine (Remeron) 7.5 mg QHS PO 11/19/19 21:00 11/19/19 20:39 I have reviewed the current psychotropics carefully including drug interactions. Risk benefit ratio favors no change other than as noted in my dictated progress note. Diagnosis: Problems: (1) Impulse control disorder, unspecified (2) Anxiety disorder, unspecified (3) Dementia, vascular, with depression (4) Dementia, vascular, with delusions (5) Dementia, Lewy body with behavior disturbance (6) Dementia in Alzheimer's disease with depression (7) Dementia in Alzheimer's disease with delusions (8) Major neurocognitive disorder (9) Aggressive behavior due to dementia (10) Visual hallucination JOSE WILSON MD Nov 19, 2019 22:02
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
[2019-11-20] MEDS: LEVOTHYROXINE 75 MCG TABLET PO SCH (05:27)
[2019-11-20 06:37] VITALS: BP 148/74
[2019-11-20] MEDS: MIDODRINE 5 MG TABLET PO SCH ×3 (08:00→17:00)
[2019-11-20] MEDS: POTASSIUM CHLORIDE 10 MEQ TABLET.ER. PO SCH (08:28)
[2019-11-20] MEDS: DABIGATRAN ETEXILATE 75 MG CAPSULE. PO SCH (08:28)
[2019-11-20] MEDS: DOCUSATE SODIUM 100 MG CAPSULE PO SCH ×2 (08:28→19:07)
[2019-11-20] MEDS: ACETAMINOPHEN 500 MG TABLET PO SCH ×2 (08:28→19:07)
[2019-11-20] MEDS: DIGOXIN 125 MCG TABLET PO SCH (08:29)
[2019-11-20] MEDS: LORazepam 1 MG TABLET PO SCH (08:29)
[2019-11-20] MEDS: PANTOPRAZOLE 40 MG TABLET. PO SCH (08:29)
[2019-11-20] MEDS: POLYETHYLENE GLYCOL 3350 17 GM PACKET. PO SCH (08:29)
[2019-11-20] MEDS: DONEPEZIL HCL 10 MG TABLET PO SCH (08:30)
[2019-11-20] MEDS ORDERED: FLU VACC QS 2020-21(6MOS+)/PF 0.5 ML SYRINGE. VAX IM ONE (09:00)
[2019-11-20] MEDS ORDERED: QUEtiapine 50 MG TABLET. PO SCH ×2 (11:30→11:45)
[2019-11-20] MEDS ORDERED: QUEtiapine 25 MG TABLET. PO SCH (13:00)
--- NOTE | 2019-11-20 15:15 | NUR ---
ACTIVITY THERAPY ASSESSMENT Completed based on observation and interview. Pt. was in his room, asked who LATHE WINDER was and went on to talk about being "doped up" and vaguely expressed concerns about his medications and being here and wanting to leave. He rambled on about taking "infections easy" and being a "slow bleeder." Pt. was hard to follow when he was talking, LATHE WINDER did not get any interest and hobbies from him. 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 is unsteady when he walks, he was sitting in a wheelchair during assessment. Potentially individual/small groups and this/that questions. Initial goal aimed to increase sensory stimulation: Pt. will participate in at least five individual Activity Therapy sessions before discharge.
[2019-11-20] MEDS: QUEtiapine 25 MG TABLET. PO SCH (15:29)
[2019-11-20 16:20] VITALS: BP 130/68
[2019-11-20] MEDS: LORazepam 1 MG TABLET PO PRN (18:04)
--- NOTE | 2019-11-20 18:30 | NUR ---
Patient had been increasingly agitated and restless before dinner and repeatedly standing on his own and trying to walk on his own; his gait is very unsteady and patient has a history of orthostatic hypotension. Patient is not following verbal cues to wait for assistance to to allow staff to assist him during ambulation; prn medication given at about 17:30 per eMAR. Patient was then placed on the quiet room floor and monitored; when he was observed walking in the quiet room, staff immediately entered the area. Patient fell prior to staff reaching the quiet room; fall was witnessed by staff. Patient was restless and not cooperative with vital signs or assessment. He had no complaints of pain, no tenderness to palpation, and didnot withdraw or grimace when bony prominences to include his scalp, shoulders, elbows, hips, or knees were palpated. Vital signs were SpO2=97% on room air, HR=76, BP=74/48. BP is questionable as patient kept trying to remove the cuff and was otherwise restless while the machine measured his vitals. Manual BP not attempted due to his agitation. Patient placed with a temporary sitter as he continues to attempt to stand, MD called, and another prn medication provided per eMAR. Will contact family per protocol and continue to monitor. Addendum: 11/20/19 at 8 by YELENA KELLY II, RN Patient was increasingly experiencing visual hallucinations and responding to internal stimuli in the later afternoon after about 15:00.
--- NOTE | 2019-11-20 18:37 | CONS ---
DATE OF CONSULTATION: 11/20/2019 REASON FOR CONSULTATION: Medical management. HISTORY OF PRESENT ILLNESS: The patient is a 79-year-old male patient, a resident at [facility], who was admitted to [facility] on 48 hours hold and was found to be COVID-19 negative and therefore he was [facility] on account of him attempting to kick a HEAVY LIFT RIGGER, being restless with increased agitation, visual hallucination. He sees cars, animals, peoples, and picks up objects off the floor that are not there. Milton the HEAVY LIFT RIGGER when he thought he was being robbed. He wanders. 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 All of this in a background of Lewy body dementia. PAST MEDICAL HISTORY: Significant for hypertension, atrial fibrillation, hyperlipidemia, obstructive sleep apnea, gastroesophageal reflux disease, hypothyroidism, sick sinus syndrome, anemia, anxiety, insomnia, and hemorrhoids. PAST SURGICAL HISTORY: Significant for permanent pacemaker placement. ALLERGIES: He is allergic to NEOSPORIN. FAMILY HISTORY: Unobtainable. SOCIAL HISTORY: He is apparently a resident at [facility]. No further information are available. MEDICATIONS: He is currently on following medications: He is on Seroquel 25 mg once a day, Seroquel 50 mg twice a day, potassium chloride 10 mEq once a day, polyethylene glycol 17 grams daily, Protonix 40 mg daily, digoxin 125 mcg once a day, lorazepam 0.5 mg daily, Aricept 10 mg daily, midodrine 5 mg 3 times a day, levothyroxine 75 mcg daily, mirtazapine 7.5 mg at bedtime, docusate sodium 100 mg twice a day, Pradaxa 75 mg twice a day, acetaminophen 1000 mg twice a day, quetiapine fumarate 50 mg at bedtime, Bismuth subsalicylate for Pepto-Bismol 524 mg 3 times a day as needed, Mylanta 30 mL after meals and as needed, olanzapine 2.5 mg every 2 hours, lorazepam 0.5 mg every 4 hours. He is also on milk of magnesia 30 mL p.o. daily p.r.n. for constipation, acetaminophen 650 mg every 6 hours as needed. PHYSICAL EXAMINATION: GENERAL: On examining him, he looked well and was clearly in no apparent respiratory distress. No pallor, jaundice, cyanosis or thyromegaly. No jugular venous distention. No limb edema. VITAL SIGNS: His heart rate was 70, blood pressure was 130/68, temperature 97.8, respiratory rate 20, and oxygen saturation was 98%. HEAD, EYES, EARS, NOSE AND THROAT: Showed normocephalic, atraumatic. NECK: Supple. CARDIAC: Normal first and second heart sounds. No gallop, rub or murmur. CHEST: Clear to auscultation. No crepitation or rhonchi. ABDOMEN: Distended, soft, nontender. NEUROLOGIC: He is demented without any obvious lateralizing sign. LABORATORY DATA: Showed a white cell count of 7700, hemoglobin 14.6, hematocrit 44, MCV 95, and platelet count of 125,000. His chemistry showed a serum sodium 141, potassium 3.8, chloride 107, bicarbonate 27, anion gap of 7, BUN 19, creatinine 1, estimated GFR was 72 mL per minute, his glucose was 91, calcium was 5.4, magnesium was 2.3. Serum iron, TIBC and iron saturation are all elevated. His bilirubin, AST, ALT, alkaline phosphatase were all normal. Total protein 7.3, albumin was 3.8. In summary, this is a 79-year-old male patient, who was a resident at [facility]. On account of worsening confusion, attempting to kick a HEAVY LIFT RIGGER, being restless, increased agitation, visual hallucination seeing cars, animals, people, he was picking up objects off the floor that are not there. He chased the HEAVY LIFT RIGGER when he thought he was being robbed. He was wandering. 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 His behaviors have been dangerous, unmanageable, resulting an admission to [facility] for inpatient psychiatric stabilization after he was found to be COVID negative at the [facility] side of [facility]. He has multiple medical problems including hypertension, atrial fibrillation, hyperlipidemia, hypothyroidism, sick sinus syndrome, anemia, and hemorrhoids. From the medical side, the patient seems to be stable. His biggest problem obviously is unsteady gait and he is on Pradaxa with a high risk for bleeding. My recommendation is to discontinue his Pradaxa and may be put him on aspirin as his risk of bleeding is much higher than the risk of having stroke. VICKY AMAYA MD DR: Jayjay JOB#: [id number] / [id number]
[2019-11-20] MEDS: MIRTAZAPINE 7.5 MG TABLET. PO SCH (19:07)
[2019-11-20] MEDS: QUEtiapine 50 MG TABLET. PO SCH (19:07)
--- NOTE | 2019-11-20 21:50 | NUR ---
Nursing Note: Location of Patient during Assessment: Pt in the quiet room, sitting on the floor at shit change. Behaviors Mood and Affect this shift: Pt restless, disorganized, and confused. Pt agitation increases with re-direction AEB yelling and attempting to kick at staff. Medication Compliant: Compliant with HS medications administered crushed in pudding. Assessment Compliant: Pt initially resistive with assessment but did comply with encouragement. Response After Interventions: Pt resting quietly in bed with eyes closed at this time.
--- NOTE | 2019-11-20 21:55 | PDOC ---
Exam Note: Evelio Note: Please also refer to the separate dictated note~for this date of service dictated separately.~Patient seen individually. Discussed the patient with Nursing staff reviewed the chart.~Reviewed interim history and current functioning. Reviewed vital signs,~Labs/ Radiology~and current medications noted below. Continue current treatment with the changes noted in the dictated addendum note Assessment: Vital Signs/I&O: Vital Signs Date Time Temp Pulse Resp B/P (MAP) Pulse Ox O2 Delivery O2 Flow Rate FiO2 11/20/19 17:00 70 130/68 11/20/19 16:20 97.8 11/20/19 06:37 Room Air I & O 11/19/19 11/19/19 11/20/19 15:00 23:00 07:00 Intake Total 360 ml Balance 360 ml Current Medications: Meds: Current Medications Medications (Trade) Dose Ordered Sig/Harvey Route PRN Reason Start Time Stop Time Status Last Admin Dose Admin Donepezil HCl (Aricept) 10 mg DAILY PO 11/20/19 09:00 11/20/19 08:30 Lorazepam (Ativan) 0.5 mg DAILY PO 11/20/19 09:00 11/22/19 23:50 11/20/19 08:29 Digoxin (Lanoxin) 125 mcg DAILY PO 11/20/19 09:00 11/20/19 08:29 Levothyroxine Sodium (Synthroid) 75 mcg DAILY06 PO 11/20/19 06:00 11/20/19 05:27 Pantoprazole Sodium (Protonix) 40 mg DAILY PO 11/20/19 09:00 11/20/19 08:29 Polyethylene Glycol (miraLAX) 17 gm DAILY PO 11/20/19 09:00 11/20/19 08:29 Potassium Chloride (Klor-Con) 10 meq DAILY PO 11/20/19 09:00 11/20/19 08:28 Quetiapine Fumarate (SEROquel) 25 mg 1500 PO 11/20/19 15:00 11/20/19 15:29 Quetiapine Fumarate (SEROquel) 50 mg BIDACBL PO 11/20/19 11:45 11/20/19 19:00 DC 11/20/19 12:05 I have reviewed the current psychotropics carefully including drug interactions. Risk benefit ratio favors no change other than as noted in my dictated progress note. Diagnosis: Problems: (1) Impulse control disorder, unspecified (2) Anxiety disorder, unspecified (3) Dementia, vascular, with depression (4) Dementia, vascular, with delusions (5) Dementia, Lewy body with behavior disturbance (6) Dementia in Alzheimer's disease with depression (7) Dementia in Alzheimer's disease with delusions (8) Major neurocognitive disorder JOSE WILSON MD Nov 20, 2019 21:55
[2019-11-21] MEDS: LEVOTHYROXINE 75 MCG TABLET PO SCH (05:02)
[2019-11-21 06:22] VITALS: BP 185/87
[2019-11-21] MEDS: POTASSIUM CHLORIDE 10 MEQ TABLET.ER. PO SCH (07:43)
[2019-11-21] MEDS: QUEtiapine 25 MG TABLET. PO SCH ×3 (07:44→13:51)
[2019-11-21] MEDS: LORazepam 1 MG TABLET PO SCH (07:44)
[2019-11-21] MEDS: ASPIRIN CHEWABLE 81 MG TABLET. PO SCH (07:44)
[2019-11-21] MEDS: ACETAMINOPHEN 500 MG TABLET PO SCH ×2 (07:44→19:25)
[2019-11-21] MEDS: DIGOXIN 125 MCG TABLET PO SCH (07:45)
[2019-11-21] MEDS: POLYETHYLENE GLYCOL 3350 17 GM PACKET. PO SCH (07:46)
[2019-11-21] MEDS: PANTOPRAZOLE 40 MG TABLET. PO SCH (07:46)
[2019-11-21] MEDS: DONEPEZIL HCL 10 MG TABLET PO SCH (07:46)
[2019-11-21] MEDS: DOCUSATE SODIUM 100 MG CAPSULE PO SCH ×2 (07:46→19:25)
[2019-11-21] MEDS: MIDODRINE 5 MG TABLET PO SCH ×3 (07:47→17:00)
[2019-11-21] MEDS ORDERED: FLU VACC QS 2020-21(6MOS+)/PF 0.5 ML SYRINGE. VAX IM ONE (09:00)
[2019-11-21] MEDS: LORazepam 1 MG TABLET PO PRN (13:52)
--- NOTE | 2019-11-21 13:56 | NUR ---
PSYCHOSOCIAL ASSESSMENT ADMISSION DATE: 11/19/19 CONTACT INFORMATION: DPOA/Guardian Contact Name: Rosanne Bolanos Contact Address: [address]; [place] [address] Contact Phone #: ETHNIC ORIGIN: REASONS FOR ADMISSION: Agitated Combative Confusion/Disoriented Hallucinations Poor impulse control Sig. 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 REASON FOR ADMISSION IN PATIENT/FAMILY'S OWN WORDS: Just needs an evaluation for his behaviors PATIENT/FAMILY EXPECTATIONS FOR ADMISSION: Medication adjustment and behavioral management LIVING SITUATION: Patient lives with: [facility] Other living arrangements: Contact Name: [employer] Contact Address: [address] [place] [address] Contact Phone #: Contact Fax #: FAMILY RELATIONS: Marital Status: # of Marriages: 1 # of Children: 4 [facility] Family Support: Concerned Cooperative Involved in DC Planning Additional Comments r/t Family: Pt met his when they lived in [place]. They moved to [place], [place]. 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 The couple has been for 57 years. SIGNIFICANT PSYCHIATRIC/MEDICAL HISTORY: Psychiatric/Treatment History: This is pt first admission to [facility]. Pt has a dx of Lewy Body Dementia. Pertinent Family History: No mental health that pt is aware of. Heart trouble is noted. HISTORICAL DATA: Childhood Environment: Stressful Supportive Childhood Environment Additional Comments: Pt grew up in [place], [place] with 1 brother and 1 sister. 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 Pt parents have passed; pt brother passed roughly 5 years ago from [facility] and his sister is living in [place]. 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 service: N Islam background: Attends the [employer] in [facility]. As of late they have been streaming the service online but is not sure that pt can follow it well. Sexual orientation: Heterosexual Educational Level: Pt completed the 12th grade (graduated high school) Past/Present Interests/Hobbies: Farming was his life Financial support/resources: Social Security Monthly income: Person handling finances: Pt cares for pt finances. Do you have a history of legal problems: N Cultural considerations: None SOCIAL RELATIONSHIPS-CURRENT/PAST: Psychiatrist: None PCP: Dr. Castillo Counselor/Therapist: None Veterans[employer] Administration: None Support Group: None Hydroelectric Production Manager/Investor Relations Specialist: None Other relationships: staff at [facility] STRENGTHS & WEAKNESSES: Patient's strengths: Good family support Stable living arrange Other patient strengths: Patient's weaknesses: Impulsive Physically Aggressive Other patient weaknesses: PRELIMINARY PLAN OF TREATMENT: Preliminary plan: Dec. Hallucination/Delus Improved Social Skills Medication Stabilization Dec. Outbursts Dec. Aggression Other preliminary treatment comments: DISCHARGE PLANNING: Discharge planning/disposition: Current Living Arrange. Additional discharge needs identified: Referral for continued psychiatric services ADDITIONAL INFORMATION: Other Pertinent Data: SID completed PSA with pt Rosanne. Pt reports that pt was just moved into the facility in May as she was not able to physically care for pt at home. She does see pt at the facility through window visits and as of late they are doing outside visits, keeping families 6ft apart from one another. Pt has requested with SW to have her daughter Velma be the first contact, as she is having a hard time not just hearing but being able to fully compute everything that she is getting told. SW will make sure to put this on the chart and to make the change on the unit report sheet.
[2019-11-21 15:48] VITALS: BP 167/81
--- NOTE | 2019-11-21 18:05 | NUR ---
Patient was restless, hallucinating, and cooperative with medications this morning. HE repeatedly attempted to stand up out of his chair or reached for unseen items on the ground. Patient increasingly restless throughout the morning, and prn medication provided per eMAR at about 13:30. Second PRN provided at about 13:52 per eMAR as patient was not responding to redirection and repeatedly attempting to walk, stating that he was looking for his socket set or other random tools. Patient was not agitated or combative, but resisted efforts to prevent him from walking. A KNITTED CLOTH EXAMINER and I walked patient from his room to the [place] hallway after providing second prn; patient could not remember to use his walker, requiring multiple reminders, and repeatedly walked into objects or patterson. Patient placed in wheelchair after ambulating; sitter assigned to patient for safety as he continues to attempt to stand on his own. notified, new orders received including 1:1 observation. Patient has been in bed since about 16:00, he is drowsy and restless, reaching for things in the air above him and constantly rambling to himself. He has made multiple attempts to get out of bed and thrown his legs over the side rails multiple times. Will continue to monitor and report to oncoming shift.
[2019-11-21] MEDS: QUEtiapine 50 MG TABLET. PO SCH (19:25)
[2019-11-21] MEDS: MIRTAZAPINE 7.5 MG TABLET. PO SCH (19:26)
--- NOTE | 2019-11-21 21:56 | NUR ---
Nursing Note: Location of Patient during Assessment: Pt sitting up in his room with 1:1 sitter at shift change. Behaviors Mood and Affect this shift: Pt restless, disorganized, and confused but cooperative. Medication Compliant: Compliant with HS medications administered crushed in pudding. Assessment Compliant: Cooperative and compliant with assessment. Response After Interventions: Pt resting quietly in bed with eyes closed at this time, sitter at bedside.
--- NOTE | 2019-11-21 22:08 | PDOC ---
Exam Note: Evelio Note: Please also refer to the separate dictated note~for this date of service dictated separately.~Patient seen individually. Discussed the patient with Nursing staff reviewed the chart.~Reviewed interim history and current functioning. Reviewed vital signs,~Labs/ Radiology~and current medications noted below. Continue current treatment with the changes noted in the dictated addendum note Assessment: Vital Signs/I&O: Vital Signs Date Time Temp Pulse Resp B/P (MAP) Pulse Ox O2 Delivery O2 Flow Rate FiO2 11/21/19 17:00 91 167/81 11/21/19 15:48 98.6 20 96 11/20/19 06:37 Room Air I & O 11/20/19 11/20/19 11/21/19 15:00 23:00 07:00 Intake Total 960 ml 1240 ml Balance 960 ml 1240 ml Current Medications: Meds: Current Medications Medications (Trade) Dose Ordered Sig/Harvey Route PRN Reason Start Time Stop Time Status Last Admin Dose Admin Aspirin (Aspirin Chewable) 81 mg DAILYWBKFT PO 11/21/19 08:00 11/21/19 07:44 Quetiapine Fumarate (SEROquel) 25 mg BIDACBL PO 11/21/19 07:30 11/21/19 12:05 Influenza Virus Vaccine Quadrival (Fluzone Quad Syringe) 0.5 ml ONCE ONCE VAX IM 11/21/19 09:00 11/21/19 09:01 DC 11/21/19 05:07 I have reviewed the current psychotropics carefully including drug interactions. Risk benefit ratio favors no change other than as noted in my dictated progress note. Diagnosis: Problems: (1) Impulse control disorder, unspecified (2) Anxiety disorder, unspecified (3) Dementia, vascular, with depression (4) Dementia, vascular, with delusions (5) Dementia, Lewy body with behavior disturbance (6) Dementia in Alzheimer's disease with depression (7) Dementia in Alzheimer's disease with delusions (8) Major neurocognitive disorder JOSE WILSON MD Nov 21, 2019 22:08
[2019-11-22] MEDS: LEVOTHYROXINE 75 MCG TABLET PO SCH (05:02)
--- NOTE | 2019-11-22 05:16 | NUR ---
Nursing Note: Pt agitated, restless, and disorganized, with VH AEB reporting to staff that there is a girl in his room. Pt also delusional AEB telling staff that "there are [phone] billion cars out there waiting to go to [place]. I have to go. I have to get out of here!" This nurse attempted to re-orient and re-direct pt without success. I told him he was in the hospital and that I was his nurse to which he responded, "I don't care if you're the Moy! Now get me out of here!" PRN Zydis administered at this time.
[2019-11-22 06:08] LABS: BASO % 0 % (0-3); EOS % 0 % (0-3); HEMATOCRIT 44.4 % (39.0-53.0); HEMOGLOBIN 14.4 g/dL (13.0-17.5); LYMPH # 1.6 x10^3/uL (1.0-4.8); LYMPH % 12 % (24-48); MEAN CORPUSCULAR HEMOGLOBIN 31 pg (25-35); MEAN CORPUSCULAR HGB CONC 32 g/dL (31-37); MEAN CORPUSCULAR VOLUME 97 fL (79-100); MONO # 1.1 x10^3/uL (0.0-1.1); MONO % 9 % (0-9); NEUT # 10.1 x10^3uL (1.8-7.7); NEUT % 79 % (31-73); PLATELET COUNT 155 x10^3/uL (140-400); RED BLOOD COUNT 4.59 x10^6/uL (4.30-5.70); RED CELL DISTRIBUTION WIDTH 15.5 % (11.5-14.5); WHITE BLOOD COUNT 12.9 x10^3/uL (4.0-11.0)
[2019-11-22 06:20] VITALS: BP 126/78
[2019-11-22 06:22] LABS: ALBUMIN 4.1 g/dL (3.4-5.0); ALBUMIN/GLOBULIN RATIO 1.1 (1.0-1.7); CALCIUM 10.1 mg/dL (8.5-10.1); CREATININE 1.2 mg/dL (0.7-1.3); GFR 58.6; POTASSIUM 4.1 mmol/L (3.5-5.1); TOTAL BILIRUBIN 1.3 mg/dL (0.2-1.0)
--- NOTE | 2019-11-22 06:45 | PDOC ---
Exam Note: Evelio Note: This note is a late entry for 11/20/2019 covers elements not covered in my initial note. Subjective: The patient was seen face to face in the evening of 11/20/2019. Discussed with nursing staff, reviewed the chart. The patient remains confused, anxious, restless. Review of Systems: Ambulation impaired in wheelchair. No CV, , pulmonary, eye, ENT system symptoms on review. Mental Status Exam: Oriented to himself. Insight and judgment, recent and remote memory, attention and concentration, fund of knowledge is poor consistent with his diagnoses. Laboratory Data: Reviewed. Impression: Major neurocognitive disorder Lewy body with delusion and depression, behavioral disturbance. Anxiety disorder unspecified. Impulse control disorder unspecified. Plan: No change from initial note. Assessment: Vital Signs/I&O: Vital Signs Date Time Temp Pulse Resp B/P (MAP) Pulse Ox O2 Delivery O2 Flow Rate FiO2 11/22/19 06:20 97.5 72 20 126/78 (94) 100 11/20/19 06:37 Room Air I & O 11/21/19 11/21/19 11/22/19 15:00 23:00 07:00 Intake Total 720 ml Balance 720 ml Labs: Laboratory Tests Test 11/22/19 05:46 White Blood Count 12.9 x10^3/uL (4.0-11.0) H Red Blood Count 4.59 x10^6/uL (4.30-5.70) Hemoglobin 14.4 g/dL (13.0-17.5) Hematocrit 44.4 % (39.0-53.0) Mean Corpuscular Volume 97 fL (79-100) Mean Corpuscular Hemoglobin 31 pg (25-35) Mean Corpuscular Hemoglobin Concent 32 g/dL (31-37) Red Cell Distribution Width 15.5 % (11.5-14.5) H Platelet Count 155 x10^3/uL (140-400) Neutrophils (%) (Auto) 79 % (31-73) H Lymphocytes (%) (Auto) 12 % (24-48) L Monocytes (%) (Auto) 9 % (0-9) Eosinophils (%) (Auto) 0 % (0-3) Basophils (%) (Auto) 0 % (0-3) Neutrophils # (Auto) 10.1 x10^3uL (1.8-7.7) H Lymphocytes # (Auto) 1.6 x10^3/uL (1.0-4.8) Monocytes # (Auto) 1.1 x10^3/uL (0.0-1.1) Eosinophils # (Auto) 0.0 x10^3/uL (0.0-0.7) Basophils # (Auto) 0.0 x10^3/uL (0.0-0.2) Sodium Level 149 mmol/L (136-145) H Potassium Level 4.1 mmol/L (3.5-5.1) Chloride Level 112 mmol/L (98-107) H Carbon Dioxide Level 28 mmol/L (21-32) Anion Gap 9 (6-14) Blood Urea Nitrogen 31 mg/dL (8-26) H Creatinine 1.2 mg/dL (0.7-1.3) Estimated GFR (Cockcroft-Gault) 58.6 BUN/Creatinine Ratio 26 (6-20) H Glucose Level 113 mg/dL (70-99) H Calcium Level 10.1 mg/dL (8.5-10.1) Total Bilirubin 1.3 mg/dL (0.2-1.0) H Aspartate Amino Transferase (AST) 30 U/L (15-37) Alanine Aminotransferase (ALT) 32 U/L (16-63) Alkaline Phosphatase 61 U/L (46-116) Total Protein 8.0 g/dL (6.4-8.2) Albumin 4.1 g/dL (3.4-5.0) Albumin/Globulin Ratio 1.1 (1.0-1.7) Current Medications: Meds: Current Medications Medications (Trade) Dose Ordered Sig/Harvey Route PRN Reason Start Time Stop Time Status Last Admin Dose Admin Aspirin (Aspirin Chewable) 81 mg DAILYWBKFT PO 11/21/19 08:00 11/21/19 07:44 Quetiapine Fumarate (SEROquel) 25 mg BIDACBL PO 11/21/19 07:30 11/21/19 12:05 Influenza Virus Vaccine Quadrival (Fluzone Quad [id number] Syringe) 0.5 ml ONCE ONCE VAX IM 11/21/19 09:00 11/21/19 09:01 DC 11/21/19 05:07 I have reviewed the current psychotropics carefully including drug interactions. Risk benefit ratio favors no change other than as noted in my dictated progress note. Diagnosis: Problems: (1) Impulse control disorder, unspecified (2) Anxiety disorder, unspecified (3) Dementia, vascular, with depression (4) Dementia, vascular, with delusions (5) Dementia, Lewy body with behavior disturbance (6) Dementia in Alzheimer's disease with depression (7) Dementia in Alzheimer's disease with delusions (8) Major neurocognitive disorder (9) Visual hallucination JOSE WILSON MD Nov 22, 2019 06:45
[2019-11-22] MEDS: LORazepam 1 MG TABLET PO PRN (06:52)
--- NOTE | 2019-11-22 06:56 | NUR ---
Nursing Note: Pt restless, disorganized, anxious, and hallucinating AEB talking to the ceiling and grabbing at the air. Staff unable to calm him. PRN Ativan administered at this time.
--- NOTE | 2019-11-22 07:00 | PDOC ---
Exam Note: Evelio Note: This note is a late entry for 11/21/2019 covers elements not covered in my initial note. Subjective: The patient was seen face to face in the evening of 11/21/2019 with Yemi LI. Discussed with nursing staff, reviewed the chart. The patient slept 7-1/2 hours previous night. Previous night he was agitated, restless frequently out of the chair, had to be in the West hallway. He fell at night. No injuries noted. Blood pressure was elevated. Systolic 185 last night when he was agitated and hallucinating, restless, unable to sit still in chair. He received Zyprexa and Ativan p.r.n. Nursing staff had called me as an emergency earlier today due to his fall risk, marked agitation. We did initiate one-on-one status. Review of Systems: Ambulation impaired in wheelchair. No CV, , pulmonary, eye, ENT system symptoms on review. Reliability poor. Mental Status Exam: Oriented to himself. Insight and judgment, recent and remote memory, attention and concentration, fund of knowledge is poor consistent with his diagnoses. Laboratory Data: Reviewed. Impression: Major neurocognitive disorder Lewy body with delusion and depression, behavioral disturbance. Anxiety disorder unspecified. Impulse control disorder unspecified. Plan: No change from initial note but we will go ahead and start Depakote Sprinkles 125 mg 9 a.m. and 1 p.m. Check CBC, CMP, valproic acid level in 3 days. Assessment: Vital Signs/I&O: Vital Signs Date Time Temp Pulse Resp B/P (MAP) Pulse Ox O2 Delivery O2 Flow Rate FiO2 11/22/19 06:20 97.5 72 20 126/78 (94) 100 11/20/19 06:37 Room Air I & O 11/21/19 11/21/19 11/22/19 15:00 23:00 07:00 Intake Total 720 ml Balance 720 ml Labs: Laboratory Tests Test 11/22/19 05:46 White Blood Count 12.9 x10^3/uL (4.0-11.0) H Red Blood Count 4.59 x10^6/uL (4.30-5.70) Hemoglobin 14.4 g/dL (13.0-17.5) Hematocrit 44.4 % (39.0-53.0) Mean Corpuscular Volume 97 fL (79-100) Mean Corpuscular Hemoglobin 31 pg (25-35) Mean Corpuscular Hemoglobin Concent 32 g/dL (31-37) Red Cell Distribution Width 15.5 % (11.5-14.5) H Platelet Count 155 x10^3/uL (140-400) Neutrophils (%) (Auto) 79 % (31-73) H Lymphocytes (%) (Auto) 12 % (24-48) L Monocytes (%) (Auto) 9 % (0-9) Eosinophils (%) (Auto) 0 % (0-3) Basophils (%) (Auto) 0 % (0-3) Neutrophils # (Auto) 10.1 x10^3uL (1.8-7.7) H Lymphocytes # (Auto) 1.6 x10^3/uL (1.0-4.8) Monocytes # (Auto) 1.1 x10^3/uL (0.0-1.1) Eosinophils # (Auto) 0.0 x10^3/uL (0.0-0.7) Basophils # (Auto) 0.0 x10^3/uL (0.0-0.2) Sodium Level 149 mmol/L (136-145) H Potassium Level 4.1 mmol/L (3.5-5.1) Chloride Level 112 mmol/L (98-107) H Carbon Dioxide Level 28 mmol/L (21-32) Anion Gap 9 (6-14) Blood Urea Nitrogen 31 mg/dL (8-26) H Creatinine 1.2 mg/dL (0.7-1.3) Estimated GFR (Cockcroft-Gault) 58.6 BUN/Creatinine Ratio 26 (6-20) H Glucose Level 113 mg/dL (70-99) H Calcium Level 10.1 mg/dL (8.5-10.1) Total Bilirubin 1.3 mg/dL (0.2-1.0) H Aspartate Amino Transferase (AST) 30 U/L (15-37) Alanine Aminotransferase (ALT) 32 U/L (16-63) Alkaline Phosphatase 61 U/L (46-116) Total Protein 8.0 g/dL (6.4-8.2) Albumin 4.1 g/dL (3.4-5.0) Albumin/Globulin Ratio 1.1 (1.0-1.7) Current Medications: Meds: Current Medications Medications (Trade) Dose Ordered Sig/Harvey Route PRN Reason Start Time Stop Time Status Last Admin Dose Admin Aspirin (Aspirin Chewable) 81 mg DAILYWBKFT PO 11/21/19 08:00 11/21/19 07:44 Quetiapine Fumarate (SEROquel) 25 mg BIDACBL PO 11/21/19 07:30 11/21/19 12:05 Influenza Virus Vaccine Quadrival (Fluzone Quad Syringe) 0.5 ml ONCE ONCE VAX IM 11/21/19 09:00 11/21/19 09:01 DC 11/21/19 05:07 I have reviewed the current psychotropics carefully including drug interactions. Risk benefit ratio favors no change other than as noted in my dictated progress note. Diagnosis: Problems: (1) Impulse control disorder, unspecified (2) Anxiety disorder, unspecified (3) Dementia, vascular, with depression (4) Dementia, vascular, with delusions (5) Dementia, Lewy body with behavior disturbance (6) Dementia in Alzheimer's disease with depression (7) Dementia in Alzheimer's disease with delusions (8) Major neurocognitive disorder JOSE WILSON MD Nov 22, 2019 07:00
[2019-11-22] MEDS: MIDODRINE 5 MG TABLET PO SCH ×2 (08:00→12:00)
[2019-11-22] MEDS: POLYETHYLENE GLYCOL 3350 17 GM PACKET. PO SCH (08:07)
[2019-11-22] MEDS: ASPIRIN CHEWABLE 81 MG TABLET. PO SCH (08:07)
[2019-11-22] MEDS: ACETAMINOPHEN 500 MG TABLET PO SCH (08:07)
[2019-11-22] MEDS: DOCUSATE SODIUM 100 MG CAPSULE PO SCH (08:08)
[2019-11-22] MEDS: POTASSIUM CHLORIDE 10 MEQ TABLET.ER. PO SCH (08:08)
[2019-11-22] MEDS: QUEtiapine 25 MG TABLET. PO SCH ×2 (08:09→12:15)
[2019-11-22] MEDS: PANTOPRAZOLE 40 MG TABLET. PO SCH (08:09)
[2019-11-22] MEDS: DIGOXIN 125 MCG TABLET PO SCH (08:09)
[2019-11-22] MEDS: DONEPEZIL HCL 10 MG TABLET PO SCH (08:09)
[2019-11-22] MEDS: LORazepam 1 MG TABLET PO SCH (08:12)
[2019-11-22] MEDS: DIVALPROEX 125 MG CAP.SPRINK PO SCH ×2 (08:12→12:15)
--- NOTE | 2019-11-22 11:15 | NUR ---
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 Goal aimed: to increase sensory stimulation Initial Goal: Pt. will participate in at least five individual Activity Therapy sessions before discharge Weekly progress towards goal: goal evaluation begins next week Group participation level: 1 min group, zero individual sessions Weekly highlights: sat through the entire group on Tuesday Behaviors observed: 1:1 after fall on Tuesday, restless/impulsive, difficulty comprehending verbal cues, calm, able to wear mask correctly the entire group Plan: no change to goal Beneficial adaptations: focused sensory activities, hand over hand guidance
--- NOTE | 2019-11-22 11:20 | NUR ---
SID and nurse, Isa, contacted pt dtr to go over concerns re: pt labs. As it stands, pt labs show dehydration; however, the hospitalist has concern about pt other labs which suggest that he is actively dying. Pt and Isa discussed the fact that pt is having trouble with swallowing and appears to have declined within the lasst 48 hours. Pt dtr reports that on the way down, he devoured a cheeseburger and azeri fries. "he asked for another cheeseburger. I just don't understand why or how the decline". All parties agreed that we would see how pt does with the fluids and re-check his blood in the morning. SID will continue to be in contact with Velma.
--- NOTE | 2019-11-22 11:30 | NUR ---
Nursing note: Pt in his bed when approached for morning med pass. He appears to be in pain as he is very restless, tense, and reaching towards his left side. Scheduled meds were given crushed in pudding, which he was compliant in taking. Dr. Estes saw pt this AM d/t pain and elevated WBC, Na, BUN, and bilirubin labs. Orders were received for 1L D5W @ 100mls/hr and a BMP 10/[address] Estes also believes pt is "actively dying" and should be placed on hospice. Family notified of pt condition and Dr. Estes's orders. Pt continues to be 1:1 for safety. Will continue to monitor.
[2019-11-22] MEDS ORDERED: IV DEXTROSE 5% 1,000 ML IV SCH (11:45)
--- NOTE | 2019-11-22 11:57 | PN ---
DATE: 11/22/2019 ATTENDING PHYSICIAN: Dr. Trivedi. I am asked to see this patient for medical followup. SUBJECTIVE: The patient is profoundly demented. He had fallen a couple of days earlier. He is not eating much. He is on a pureed diet. He is in a position and has significant tremors. Clinically, he appears dehydrated. OBJECTIVE FINDINGS: VITAL SIGNS: Blood pressure today is 128/78, pulse is 72 and regular, temperature 97.5 degrees Fahrenheit, oxygen saturation 100% on room air. HEENT: Head is without trauma. Pupils are reactive. Orbits are sunken. NECK: Supple. There is no stridor. LUNGS: Shallow respirations. CARDIOVASCULAR: Showed regular heart tones. No gallops. ABDOMEN: Soft. Minimal guarding. Bowel sounds were hypoactive. There are no masses or hematomas. There is no superficial bruising. EXTREMITIES: Showed contractures and muscle wasting. He is nonambulatory. PERTINENT LABORATORY STUDIES: His hemoglobin today is 14.4 g/dL in a hemoconcentrated state, white count 12,900. Chemistries showed an increased sodium 149 mEq per liter. Chloride concomitantly elevated at 112 mEq per liter. Creatinine is 1.2 mg/dL. Bilirubin 1.3 mg/dL. ASSESSMENT: 1. This 79-year-old gentleman has Lewy body dementia. He is profoundly demented. 2. Agitation and generalized debilitation. 3. Dehydration due to free water deficit with associated hypernatremia and hyperchloremia. 4. Paroxysmal atrial fibrillation. 5. History of hypertension. 6. Obstructive sleep apnea. 7. Hypothyroidism. 8. Sick sinus syndrome. 9. Anemia of chronic disease. 10. Generalized debilitation. RECOMMENDATIONS: 1. I recommended gentle IV hydration, dextrose infusion on the floor. 2. Follow up chemistries in the morning. 3. Given his diagnosis of Lewy body dementia, I believe this patient is actively dying and I feel that hospice care may be indicated. Thank you again for asking me to see this patient for medical evaluation, consultation. We should gladly follow closely during the remainder of his hospital stay. RIZWAN STACK MD DR: SCARLETT/pascale JOB#: [id number] / [id number]
[2019-11-22 12:00] VITALS: BP 139/75
--- NOTE | 2019-11-22 13:00 | NUR ---
Nursing note: DISTRIBUTION CLERK notified this RN of pt having more difficulty swallowing his pureed lunch, coughing after every bite. Pt is also having a hard time clearing his throat, speech is more garbled, and lung sounds are moist. Dr. Estes notified of pt's deteriorating condition and ordered stat chest x-ray and to be transferred to [address] [place] [address].
--- NOTE | 2019-11-22 14:00 | NUR ---
SID contacted pt dtr, Velma, to go over concerns that they may need to make their way down. According to the recent assessment, it would not be in the best interest to not transfer pt out. It is concerning in the event that he not make it or have trouble with such a long drive ahead of him. Pt dtr will waste picker pt and then mentioned alerting other family members so that they can either come see him during facetime. SID informed pt dtr that pt will be taken down to room 125 and pt nurse is Roberta.
[2019-11-22] MEDS ORDERED: ACET650S19 PO (14:16)
[2019-11-22] MEDS ORDERED: ASPI-630 PO (14:17)
[2019-11-22] MEDS ORDERED: DIVA125C2 PO (14:18)
[2019-11-22] MEDS ORDERED: METH28OI2 TP (14:21)
[2019-11-22] MEDS ORDERED: MIRT15TA PO (14:22)
--- NOTE | 2019-11-22 14:35 | RAD ---
Examination: CHEST AP ONLY History: Reason: possible aspiration, very recent trauma to the left chest reported Comparison: None. Findings: AP portable upright frontal views of the chest was obtained. Dual lead left-sided pacemaker is present. Patient is rotated limiting assessment. The cardiomediastinal silhouette is normal. Right lung base patchy infiltrate is present. Left apical pneumothorax is present. Lung apex is present at the posterior third and fourth rib interspace.. No pleural effusion is appreciated. Multiple left lower rib fractures are present without callus formation. These appear to be acute with soft tissue swelling of the chest wall. Old right rib fracture also seen. IMPRESSION: Left apical pneumothorax. Left lower rib fractures appear acute. Right basilar patchy infiltrate. On 11/22/2019 2:30 PM, results reported to the patient's nurse Kelly. Electronically signed by: Pancho Greene MD (11/22/2019 2:33 PM) [facility]
--- NOTE | 2019-11-22 14:43 | NUR ---
Transition Record was faxed to follow-up provider with the following elements: Reason for admission, procedures, tests, principal diagnosis, pending studies, patient instructions, 30/08 contact information for unit, phone number to obtain pending test results, plan for follow-up care, physician follow-up, advanced directive information, and medication list with dose, duration and instructions. This information was included in the following documents: History and physical, lab results, study results, progress notes, social work planning form, DC instruction form, patient visit summary, and medication reconciliation form. Date & time record faxed: 11/22/19 [phone] Record faxed to: 1 suzette [phone] Record discussed with/ report given to: JEN Granados 1 suzette by Isa Zamora
--- NOTE | 2019-11-22 15:02 | NUR ---
Radiologist called JEN Moss and told her that patient has a L pneumothorax and 4 fractured ribs. Provider paged, call returned by Dr Estes. Dr Estes said to notify [facility] nurse and family to determine how aggressive the family wants to be r/t possible chest tube placement and possible transfer to a higher level of care facility. LUIS Díaz, director of [facility] is aware of radiology results. Family is aware. Nurse to speak to SID James and JEN Granados 1 [facility].
--- NOTE | 2019-11-22 22:20 | PDOC ---
Exam Note: Evelio Note: Please also refer to the separate dictated note~for this date of service dictated separately.~Patient seen individually. Discussed the patient with Nursing staff reviewed the chart.~Reviewed interim history and current functioning. Reviewed vital signs,~Labs/ Radiology~and current medications noted below. Continue current treatment with the changes noted in the dictated addendum note Assessment: Vital Signs/I&O: Vital Signs Date Time Temp Pulse Resp B/P (MAP) Pulse Ox O2 Delivery O2 Flow Rate FiO2 11/22/19 12:00 100 139/75 11/22/19 06:20 97.5 20 100 11/20/19 06:37 Room Air I & O 11/21/19 11/21/19 11/22/19 15:00 23:00 07:00 Intake Total 720 ml Balance 720 ml Labs: Laboratory Tests Test 11/22/19 05:46 White Blood Count 12.9 x10^3/uL (4.0-11.0) H Red Blood Count 4.59 x10^6/uL (4.30-5.70) Hemoglobin 14.4 g/dL (13.0-17.5) Hematocrit 44.4 % (39.0-53.0) Mean Corpuscular Volume 97 fL (79-100) Mean Corpuscular Hemoglobin 31 pg (25-35) Mean Corpuscular Hemoglobin Concent 32 g/dL (31-37) Red Cell Distribution Width 15.5 % (11.5-14.5) H Platelet Count 155 x10^3/uL (140-400) Neutrophils (%) (Auto) 79 % (31-73) H Lymphocytes (%) (Auto) 12 % (24-48) L Monocytes (%) (Auto) 9 % (0-9) Eosinophils (%) (Auto) 0 % (0-3) Basophils (%) (Auto) 0 % (0-3) Neutrophils # (Auto) 10.1 x10^3uL (1.8-7.7) H Lymphocytes # (Auto) 1.6 x10^3/uL (1.0-4.8) Monocytes # (Auto) 1.1 x10^3/uL (0.0-1.1) Eosinophils # (Auto) 0.0 x10^3/uL (0.0-0.7) Basophils # (Auto) 0.0 x10^3/uL (0.0-0.2) Sodium Level 149 mmol/L (136-145) H Potassium Level 4.1 mmol/L (3.5-5.1) Chloride Level 112 mmol/L (98-107) H Carbon Dioxide Level 28 mmol/L (21-32) Anion Gap 9 (6-14) Blood Urea Nitrogen 31 mg/dL (8-26) H Creatinine 1.2 mg/dL (0.7-1.3) Estimated GFR (Cockcroft-Gault) 58.6 BUN/Creatinine Ratio 26 (6-20) H Glucose Level 113 mg/dL (70-99) H Calcium Level 10.1 mg/dL (8.5-10.1) Total Bilirubin 1.3 mg/dL (0.2-1.0) H Aspartate Amino Transferase (AST) 30 U/L (15-37) Alanine Aminotransferase (ALT) 32 U/L (16-63) Alkaline Phosphatase 61 U/L (46-116) Total Protein 8.0 g/dL (6.4-8.2) Albumin 4.1 g/dL (3.4-5.0) Albumin/Globulin Ratio 1.1 (1.0-1.7) Current Medications: Meds: Current Medications Medications (Trade) Dose Ordered Sig/Harvey Route PRN Reason Start Time Stop Time Status Last Admin Dose Admin Divalproex Sodium (Depakote Sprinkles) 125 mg 0900,1300 PO 11/22/19 09:00 11/22/19 14:37 DC 11/22/19 12:15 I have reviewed the current psychotropics carefully including drug interactions. Risk benefit ratio favors no change other than as noted in my dictated progress note. Diagnosis: Problems: (1) Impulse control disorder, unspecified (2) Anxiety disorder, unspecified (3) Dementia, vascular, with depression (4) Dementia, vascular, with delusions (5) Dementia, Lewy body with behavior disturbance (6) Dementia in Alzheimer's disease with depression (7) Dementia in Alzheimer's disease with delusions (8) Major neurocognitive disorder JOSE WILSON MD Nov 22, 2019 22:20
[2019-11-23] MEDS ORDERED: DONEPEZIL HCL 10 MG TABLET PO SCH ×2 (09:00)
--- NOTE | 2019-11-23 21:56 | DS ---
DATE OF DISCHARGE: 11/22/2019 DISCHARGE SUMMARY/PSYCHIATRIC PROGRESS NOTE REASON FOR ADMISSION: Please refer to the admission history for details. Briefly, the patient is a 79-year-old male referred to us from [facility] on account of worsening confusion with his diagnosis of Lewy body dementia, which was initially diagnosed at the [facility]. He was getting physically aggressive at the facility attempting to kick the staff members, restless, increased agitation, visual hallucinations, seeing cars, animals and people. He was picking up objects off the floor that were not there. He chased a [employer] when he thought he was being robbed. 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 He failed outpatient psychiatric interventions. Behaviors were deemed dangerous and he was referred for inpatient psychiatric stabilization. Initially, he was on the [facility] unit till the COVID screen was negative and then transition to [facility]. SIGNIFICANT FINDINGS AND CLINICAL COURSE: Following admission, the patient was seen daily individually by myself from a psychiatric standpoint, medical followup with Dr. Vidales/Dr. Estes. The patient remained confused, quite labile in his mood, agitated. Adjustments were made in his psychotropics and at the time of discharge or shortly prior to that, he was on Ativan 0.5 mg daily, which was p.r.n. along with Aricept 10 mg a day, Seroquel 25 mg, 0730, 1130, 1500, 50 mg each, Zyprexa p.r.n., Remeron 7.5 mg at bedtime, Depakote Sprinkles 125 mg twice a day. Physically, the patient appeared to deteriorate. He was staffed at a treatment team meeting with the entire team on 11/22/2019 and the patient's daughter, Apolonia attended the lengthy meeting as well. He continued to have auditory and visual hallucinations, was restless, impulsive, disorganized. Appetite 60%, sleeping 7 hours. He did have a fall on the . As the day progressed on the , he was medically more compromised, had been on one-on-one status from the previous evening. Dr. Estes felt the patient needed to be transitioned to the medical/surgical floor and then perhaps return home on hospice care. He was discharged from our service on 11/22/2019. REVIEW OF SYSTEMS: Prior to discharge, ambulation impaired. No CV, , pulmonary, eye, ENT system symptoms on review. Reliability poor. MENTAL STATUS EXAM: Oriented to himself. Insight, judgment, recent and remote memory, attention, concentration, fund of knowledge poor, consistent with his diagnosis. FINAL DIAGNOSES: Major neurocognitive disorder, Lewy body with delusion, depression, behavioral disturbance; anxiety disorder, unspecified; impulse control disorder, unspecified. Rest unchanged from admission. The patient was medically quite compromised. DISCHARGE MEDICATIONS: Please refer to the MRAD. DISCHARGE INSTRUCTIONS: He may be transitioning to a lower level of care on hospice care once determined per Dr. Estes. Time for discharge day management greater than 30 minutes. MAN Cristóbal WILSON MD DR: YESSY/pascale JOB#: [id number] / [id number]
--- NOTE | 2019-11-24 06:45 | PDOC ---
Exam Note: Evelio Note: This note is a late entry for DOS 11/20/2019 and an addendum to the progress note dictated earlier for 11/20/2019. Subjective: The patient was seen face to face in the evening of 11/20/2019 with Yemi LI. He did walk with physical therapy, was agitated at one point. He received Zyprexa. He has some orthostatic changes in his blood pressure and did have fall on the mattress. BP was down to 74/48 mmHg. Plan: We will reduce the Seroquel which is currently 50 mg b.i.d. at 7.30 a.m. and 11.30 a.m. and 25 mg at 1300 hours, 50 mg h.s. We will reduce the morning dosage down to 25 mg. Stop the temazepam 15 mg h.s. Maintain rest unchanged for now. Assessment: Vital Signs/I&O: Vital Signs Date Time Temp Pulse Resp B/P (MAP) Pulse Ox O2 Delivery O2 Flow Rate FiO2 11/22/19 12:00 100 139/75 11/22/19 06:20 97.5 20 100 11/20/19 06:37 Room Air Current Medications: I have reviewed the current psychotropics carefully including drug interactions. Risk benefit ratio favors no change other than as noted in my dictated progress note. Diagnosis: Problems: (1) Impulse control disorder, unspecified (2) Anxiety disorder, unspecified (3) Dementia, vascular, with depression (4) Dementia, vascular, with delusions (5) Dementia, Lewy body with behavior disturbance (6) Dementia in Alzheimer's disease with depression (7) Dementia in Alzheimer's disease with delusions (8) Major neurocognitive disorder JOSE WILSON MD Nov 24, 2019 06:45
== END 2019-11-22 14:36 | disposition admitted as inpatient to this hospital (09) | DRG 57 ==
LOC: GEROPSY 14:35
PROVIDERS: ADMIT Psychiatry & Neurology Psychiatry; ATTEND Psychiatry & Neurology Psychiatry
DX: G31.83 Neurocognitive disorder with Lewy bodies (principal); E87.0 Hyperosmolality and hypernatremia; F01.51 Vascular dementia, unspecified severity, with behavioral disturbance; F02.81 Dementia in other diseases classified elsewhere, unspecified severity, with behavioral disturbance; G30.9 Alzheimer's disease, unspecified; D63.8 Anemia in other chronic diseases classified elsewhere; E03.9 Hypothyroidism, unspecified; E78.5 Hyperlipidemia, unspecified; E86.0 Dehydration; E87.8 Other disorders of electrolyte and fluid balance, not elsewhere classified; F32.9 Major depressive disorder, single episode, unspecified; F41.9 Anxiety disorder, unspecified; G47.33 Obstructive sleep apnea (adult) (pediatric); I10 Essential (primary) hypertension; I48.0 Paroxysmal atrial fibrillation; I49.5 Sick sinus syndrome; Z20.828 Contact with and (suspected) exposure to other viral communicable diseases; Z66 Do not resuscitate; Z91.83 Wandering in diseases classified elsewhere; Z95.0 Presence of cardiac pacemaker; K21.9 Gastro-esophageal reflux disease without esophagitis; Z79.899 Other long term (current) drug therapy
CPT/HCPCS: 36415; 71045; 80053; 85025; 90471; 90686; 97116; 97535

== ENCOUNTER 2019-11-22 14:12 | Inpatient (IN) | payer MEDICARE ==
[~2019-11-22] VITALS: Ht 375.9 cm; Wt 81.9 kg
[~2019-11-22 14:12] MED LIST changes: +LORA-434 PO; +OLAN5TAB99 PO; +QUET25TA5 PO; +QUET50TA5 PO
[2019-11-22] MEDS ORDERED: ACET650S19 PO (14:16)
[2019-11-22] MEDS ORDERED: ASPI-630 PO (14:17)
[2019-11-22] MEDS ORDERED: DIVA125C2 PO (14:18)
[2019-11-22] MEDS ORDERED: METH28OI2 TP (14:21)
[2019-11-22] MEDS ORDERED: MIRT15TA PO (14:22)
[2019-11-22 14:30] VITALS: BP 175/92
--- NOTE | 2019-11-22 14:30 | NUR ---
JOSEPH SANTORO A 79YO MALE WAS ADMITTED FROM [facility] TO [address] [place] [address], FOR AMS, PNEUMONIA, S/P FALL, FEVER. PT IS NON VERBAL AT THIS TIME, PT HAS LOW GRADE FEVER, ADMISSION ASSESSMENT COMPLETED, IVF STARTED, ANTIBIOTICS STARTED, THIS RN SPOKE WITH PT'S AND DAUGHTER WILL BE DRIVING HERE TONIGHT (A [address]) THEY WILL SEE PT TOMORROW AND MEET WITH SID BUTLER TO DISCUSS POSSIBLE HOSPICE.
[2019-11-22] MEDS ORDERED: metroNIDAZOLE 500 MG TABLET PO SCH (15:15)
[2019-11-22] MEDS: IV DEXTROSE 5% 1,000 ML IV SCH (15:15)
[2019-11-22 19:16] VITALS: BP 118/73
[2019-11-22] MEDS: ACETAMINOPHEN 650 MG SUPP.RECT. PR PRN (19:58)
[2019-11-22 22:31] VITALS: BP 163/71
[2019-11-23] MEDS: ACETAMINOPHEN 650 MG SUPP.RECT. PR PRN (03:12)
--- NOTE | 2019-11-23 03:27 | NUR ---
PT HIGHLY RESTLESS THIS SHIFT. THRASHING IN BED AND PT PULLING ON LINES. MITS IN PLACE FOR SAFETY. COMBATIVE WITH ALL CARES, UNABLE TO REDIRECT. PRN ATIVAN GIVEN WITH MODERATE EFFECT. PT WITH FEVER OF 101.8, TYLENOL SUPPOSITORY ADMINISTERED. TEMP IMPROVED.
[2019-11-23] MEDS: IV DEXTROSE 5% 1,000 ML IV SCH (04:18)
[2019-11-23 06:28] VITALS: BP 179/70
--- NOTE | 2019-11-23 10:58 | HP ---
ADMIT DATE: 11/23/2019 ATTENDING PHYSICIAN: Dr. Stack. CHIEF COMPLAINT: Shortness of breath. HISTORY OF PRESENT ILLNESS: The patient is a 79-year-old gentleman who was sent here from [facility]. He was slated to go to the Senior Diagnostic Unit. He was seen by Dr. Vidales on 11/20/2019. His COVID swab was negative. He was sent up to the floor on the . However, he had fallen the day before sustaining injury to the left chest. He was short of breath. He had low-grade fevers. Chest x-ray demonstrated patchy infiltrate in the right base consistent with aspiration. In addition, he had several rib fractures on the left side and a small apical pneumothorax. This did not cause any respiratory compromise. Supplemental oxygen was added. He is a DNR per advanced directive. Because of his decline in nature and his underlying mental condition, he was sent down here for readmission. PAST MEDICAL HISTORY: Significant for Lewy body dementia, behavioral disturbances, aggressive behavior, anxiety disorder, impulse control disorder. He had been in the skilled nursing. ALLERGIES: HE HAS ALLERGIES TO BACITRACIN, NEOMYCIN, POLYMYXIN. Exact reaction is unclear. CURRENT MEDICATIONS: Prior to admission included Tylenol, aspirin, digoxin, Depakote, docusate, Aricept, Synthroid, lorazepam, magnesium hydroxide, Remeron, Zyprexa Zydis, Protonix, MiraLax, potassium, Seroquel, and Pepto-Bismol. SOCIAL HISTORY: He is a nonsmoker, nondrinker. FAMILY HISTORY: Unobtainable. REVIEW OF SYSTEMS: Unobtainable. PHYSICAL EXAMINATION: GENERAL: When I saw him, this is a nonverbal gentleman with totally bedridden. He has a blank stare. He has essential tremor. He is requiring 24-hour care. VITAL SIGNS: His initial blood pressure was 118/73, temperature 101.8 degrees Fahrenheit, pulse 76 and regular, oxygen saturation 95% on room air. HEENT: Head is without trauma. Pupils are reactive. Sclerae nonicteric. Oropharynx clear. Mucous membranes dry. Orbits are sunken. NECK: Supple, no bruits. LUNGS: Coarse rhonchi at bases with shallow respirations. CARDIOVASCULAR: Showed regular heart tones. No gallops. Peripheral pulses are palpable and weak. ABDOMEN: Soft, scaphoid, nontender, no organomegaly. Bowel sounds are hypoactive. EXTREMITIES: Showed no cyanosis or edema. NEUROLOGIC: He is nonverbal and nonambulatory. He is not aware of person, place or time. He is requiring mitts in his hands to prevent him from pulling out IVs for patient safety. He requires significant care. PERTINENT LABORATORY STUDIES: His hemoglobin was 14.4 g/dL in a hemoconcentrated state, white count 12,900. Electrolytes: Sodium was 149 mEq/L, chloride 112. Nonfasting blood sugar 113. Chest x-ray as noted. ASSESSMENT: 1. A 79-year-old gentleman with profound Lewy body dementia, has fallen. He has sustained several rib fractures on the left with a small apical pneumothorax. 2. Aspiration pneumonia, right lower lobe. 3. Profound Lewy body dementia. 4. Mtjiu-zh-stzgoyb respiratory failure. 5. Generalized debilitation. 6. Dehydration, free water deficit with concomitant hypernatremia and hyperchloremia. PLAN: 1. Admit to the medical unit. 2. He is a DNR per advanced directive. We will initiate comfort measures. 3. Intravenous Rocephin and metronidazole has been started. 4. Gentle IV hydration with D5W due to his free water deficit. 5. Serial chemistries. 6. I would recommend hospice care for this patient. 7. I have spoken with his yesterday. Her name is Rosanne Bolanos. She and her family are planning to come up here to visit. I will discuss hospice care when appropriate. RIZWAN STACK MD DR: SCARLETT/pascale JOB#: [id number] / [id number]
--- NOTE | 2019-11-23 14:32 | DS ---
DATE OF DISCHARGE: 11/23/2019 ATTENDING PHYSICIAN: Dr. Stack. FINAL DISCHARGE DIAGNOSES: 1. Aspiration pneumonia, right lower lobe. 2. Acute on chronic respiratory failure. 3. Profound Lewy body dementia. 4. Recent fall with several left rib fractures. 5. Small apical pneumothorax on the left. 6. Generalized debilitation. 7. Dehydration and free water deficit. 8. Hypernatremia. 9. Hyperchloremia. HISTORY AND PHYSICAL: This is an unfortunate 79-year-old gentleman with end-stage Lewy body dementia. He was sent here from a halfway in [facility] for evaluation at the Senior Diagnostic Unit. He had a temperature of 101.8 degrees. He had fallen. He also aspirated. He was readmitted back to the medical floor. His COVID-19 swab was negative 3 days ago. PHYSICAL EXAMINATION: Please see the dictated note. PERTINENT LABORATORY AND X-RAY STUDIES: Admission hemoglobin was 14.4 g/dL with a white count of 12,900. Chemistry showed a sodium of 149 mEq, potassium 4.1, chloride 112 mEq per liter. Creatinine was 1.2 mg percent. His transaminases were not elevated. Total bilirubin is slightly elevated at 1.3 mg/dL. He had a chest x-ray done on the day of admission, it showed evidence of acute left-sided rib fractures, diffuse infiltrate in the right lower lobe and a small left apical pneumothorax. COURSE IN THE HOSPITAL: The patient was admitted to the medical floor. We gave him oxygen and morphine along with Ativan for agitation. Home meds were held orally, pending evaluation and swallow eval. I did start him on empiric Rocephin and metronidazole for his aspiration pneumonia. The patient still remains obtunded. The family was able to come here from [facility]. I met with him on the morning of 11/23/2019. They understand that the patient has end-stage disease, and they are requesting hospice care. Therefore, hospice was asked to see the patient, they wanted us to discharge him to inpatient hospice care at the hospital. Therefore, for now whether or not they will continue the antibiotics or fluid ____. I discussed the case with Dr. Vidales. The patient was then discharged from the hospital acute care to be readmitted under hospice care for end of life care. His prognosis is terminal. RIZWAN STACK MD DR: SCARLETT/pascale JOB#: [id number] / [id number] [facility] Mati Bella AHMED MD
--- NOTE | 2019-11-23 14:40 | NUR ---
NURSING NOTE DISCHARGE PT DISCHARGED TO IN HOSPICE WITH [facility]. FAMILY AT BEDSIDE. JEN NAVAS.
== END 2019-11-23 14:39 | disposition hospice, inpatient (51) | DRG 177 ==
LOC: 1 SOUTH 14:40
PROVIDERS: ADMIT Hospitalist; ATTEND Hospitalist
DX: J69.0 Pneumonitis due to inhalation of food and vomit (principal); J96.20 Acute and chronic respiratory failure, unspecified whether with hypoxia or hypercapnia; S22.42XA Multiple fractures of ribs, left side, initial encounter for closed fracture; F02.81 Dementia in other diseases classified elsewhere, unspecified severity, with behavioral disturbance; S27.0XXA Traumatic pneumothorax, initial encounter; E87.0 Hyperosmolality and hypernatremia; G31.83 Neurocognitive disorder with Lewy bodies; Z20.828 Contact with and (suspected) exposure to other viral communicable diseases; E87.8 Other disorders of electrolyte and fluid balance, not elsewhere classified; Z51.5 Encounter for palliative care; E86.0 Dehydration; Z66 Do not resuscitate; F41.9 Anxiety disorder, unspecified; F63.9 Impulse disorder, unspecified; Z88.1 Allergy status to other antibiotic agents; Z88.8 Allergy status to other drugs, medicaments and biological substances
CPT/HCPCS: J0696; J2060; J3490

== ENCOUNTER 2019-11-23 14:45 | Inpatient (IN) | payer OTHER ==
[~2019-11-23] VITALS: Ht 375.9 cm; Wt 80.3 kg
[~2019-11-23 14:45] MED LIST changes: +ACET650S19 PO; +ASPI-630 PO; +DIVA125C2 PO; +METH28OI2 TP; +MIRT15TA PO
[2019-11-23] MEDS ORDERED: ACETAMINOPHEN 650 MG SUPP.RECT. PR PRN (15:00)
--- NOTE | 2019-11-23 15:06 | NUR ---
NURSING NOTE ADMIT ADMIT TO INPT HOSPICE COMFORT CARE UNDER VITAS. PT CURRENTLY RESTLESS IN THE BED. ORDERS OBTAINED FOR COMFORT MEASURES. FAMILY AT BEDSIDE. JEN NAVAS.
[2019-11-23] MEDS: SCOPOLAMINE 1.5MG PATCH. TD SCH (15:14)
[2019-11-23] MEDS: MORPHINE SULFATE 2 MG/ML DISP.SYRIN. IV SCH ×9 (15:14→23:38)
[2019-11-23 20:03] VITALS: BP 119/75
[2019-11-24] MEDS: MORPHINE SULFATE 2 MG/ML DISP.SYRIN. IV SCH ×23 (00:36→23:00)
[2019-11-24 06:14] VITALS: BP 121/77
--- NOTE | 2019-11-24 11:24 | NUR ---
PT sedated and unable to arouse. O2 is 85% and pt appears comfortable. Family at bedside. Arina LI
[2019-11-24] MEDS: ACETAMINOPHEN 650 MG SUPP.RECT. PR PRN (16:47)
[2019-11-24 20:40] VITALS: BP 160/104
[2019-11-25] MEDS: MORPHINE SULFATE 2 MG/ML DISP.SYRIN. IV SCH ×13 (00:01→13:02)
--- NOTE | 2019-11-25 05:02 | NUR ---
Pt restless at beginning of shift; scheduled morphine relieved. Family at bedside near beginning of shift. Pt sleeping at this time.
[2019-11-25 10:22] VITALS: BP 175/84
[2019-11-25] MEDS: IV NORMAL SALINE 1,000ML 1,000 ML IV SCH (14:01)
[2019-11-25] MEDS: MORPHINE SULFATE 30 MG/30 ML 30 ML IV PRN (14:25)
[2019-11-25] MEDS: ACETAMINOPHEN 650 MG SUPP.RECT. PR PRN (23:20)
[2019-11-26] MEDS: MORPHINE SULFATE 30 MG/30 ML 30 ML IV PRN (05:27)
--- NOTE | 2019-11-26 06:39 | NUR ---
pt receiving 2mg morphine CORRECTIVE THERAPIST pump. pt was comfortable this evening no signs of discomfort. new iv start this am due to old one leaking.
[2019-11-26] MEDS: SCOPOLAMINE 1.5MG PATCH. TD SCH (08:28)
[2019-11-26] MEDS: IV NORMAL SALINE 1,000ML 1,000 ML IV SCH (11:28)
--- NOTE | 2019-11-26 11:45 | NUR ---
NURSING NOTE PRONOUNCEMENT OF AT 1130 AM PT WAS INDEPENDENTLY ASSESSED BY THIS NURSE WELL DERIK LI AND DETERMINED THAT THE PT HAS NO RESPONSE TO VERBAL OR TACTILE STIMULI, NO BREATH SOUNDS, NO APICAL HEARTBEAT FOR ONE MINUTE. DR AMAYA NOTIFIED OF THESE ASSESSMENT FINDINGS BY THIS NURSE AT 1137AM. PRONOUNCED AT 1132AM BY THIS NURSE AND DERIK LI. FAMILY AT BEDSIDE. JEN NAVAS.
--- NOTE | 2019-11-26 15:19 | NUR ---
NURSING NOTE DISCHARGE PT DISCHARGED TO [facility] PER [facility] AT 1515. BELONGINGS GIVEN TO FAMILY AT 1200. [facility] NURSE [facility] NOTIFIED. NO COMPLICATIONS. JEN NAVAS.
--- NOTE | 2019-12-06 13:33 | DS ---
DATE OF DISCHARGE: 11/26/2019 DISCHARGE SUMMARY HOSPITAL COURSE: The patient is a 79-year-old male patient who was originally admitted to a 48-hour hold to the [facility] in [facility] to make sure that his COVID-19 was negative and it was not; therefore, he was transferred [facility] for inpatient psychiatric stabilization. 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 He sees cars, animals, peoples and picks up objects off the floor that are not there and chased the CERTIFIED VEHICLE FIRE INVESTIGATOR when he thought he was being robbed. He wanders. 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 All of this in a background of Lewy body dementia. He was on Xarelto and I did speak with his . Given that he has very high risk for fall, we discontinued his anticoagulant. Unfortunately, he has fallen the day before sustaining injury to his left chest. He was short of breath. He had low-grade fever. Chest x-ray demonstrated patchy infiltrate in the right base consistent with aspiration. In addition, he has several rib fractures on the left side and small apical pneumothorax. This did not cause any respiratory compromise. Supplemental oxygen was added. He is a DNR with advanced directive. Because of his decline in nature and his underlying mental condition, he was sent down to [facility] where he was started on IV antibiotic in the form of Rocephin and Flagyl and gentle hydration. Discussion was held with his and the patient was eventually admitted to inpatient hospice for end of life care. The patient was started on morphine drip together with Ativan and the patient was found at around 11:45 on 11/26/2019 to have no response to verbal or tactile stimuli. No breath sounds. No apical heartbeat. No palpable pulsation and the patient was pronounced at around 11:32. His family was at bedside. FINAL DISCHARGE DIAGNOSES: 1. Cardiopulmonary arrest. 2. Acute respiratory failure. 3. Aspiration pneumonia. 4. Dysphagia. 5. Lewy body dementia. VICKY AMAYA MD DR: JASMINA/pascale JOB#: [id number] / [id number]
== END 2019-11-26 15:22 | DRG 177 ==
LOC: 1 SOUTH 14:45
PROVIDERS: ADMIT Internal Medicine; ATTEND Internal Medicine
DX: J69.0 Pneumonitis due to inhalation of food and vomit (principal); J96.00 Acute respiratory failure, unspecified whether with hypoxia or hypercapnia; S22.42XA Multiple fractures of ribs, left side, initial encounter for closed fracture; J93.9 Pneumothorax, unspecified; I46.9 Cardiac arrest, cause unspecified; G31.83 Neurocognitive disorder with Lewy bodies; R13.10 Dysphagia, unspecified; F02.80 Dementia in other diseases classified elsewhere, unspecified severity, without behavioral disturbance, psychotic disturbance, mood disturbance, and anxiety; Z51.5 Encounter for palliative care; X58.XXXA Exposure to other specified factors, initial encounter; Z66 Do not resuscitate; Z91.83 Wandering in diseases classified elsewhere; Y93.9 Activity, unspecified; Y92.89 Other specified places as the place of occurrence of the external cause; Y99.8 Other external cause status; Z88.8 Allergy status to other drugs, medicaments and biological substances
CPT/HCPCS: J2060; J2270; Q5005; J7030